=== PATIENT | male | born 1970 | race Caucasian/White ===

== ENCOUNTER → 2016-08-26 | Outpatient (CLI) | payer OTHER | LOC: RAD 10:09 | PROVIDERS: ATTEND Nurse Practitioner Family | DX: M54.5 Low back pain (principal) | CPT/HCPCS: 72148 ==

== ENCOUNTER 2017-01-03 14:35 | Emergency (ER) | payer OTHER ==
--- NOTE | 2017-01-03 15:11 | ER Document Report ---
ED Medical Screen (RME) - General Stated Complaint: FOOT PAIN Time Seen by Provider: 01/03/17 15:09 Mode of Arrival: Wheelchair Information source: Patient Notes: history of plantar fasciitis, fractured bones, torn ligaments. Reports felt light pop, excruciating pain to the right foot for 2 days. TRAVEL OUTSIDE OF THE [place] IN LAST 30 DAYS: No - Related Data Allergies/Adverse Reactions: No Known Allergies Allergy (Verified 11/11/13 00:01) Past Medical History - Past Medical History Cardiac Medical History: Reports: Hx Hypercholesterolemia, Hx Hypertension Endocrine Medical History: Reports: Hx Diabetes Mellitus Type 2 - pre diabetes Renal/ Medical History: Reports: Hx Kidney Stones Musculoskeltal Medical History: Reports Hx Arthritis, Reports Hx Musculoskeletal Deformity, Reports Hx Musculoskeletal Trauma Traumatic Medical History: Reports: Hx Fractures Past Surgical History: Reports: Hx Abdominal Surgery, Hx Orthopedic Surgery - knee replacement facial reconstruction, Hx Tonsillectomy - Immunizations Immunizations up to date: Yes Hx Diphtheria, Pertussis, Tetanus Vaccination: Yes
[2017-01-03 15:12] VITALS: BP 146/92
--- NOTE | 2017-01-03 15:48 | RADIOLOGY REPORT (SQ) ---
EXAM DESCRIPTION: FOOT RIGHT COMPLETE COMPLETED DATE/TIME: 01/03/2017 3:29 pm REASON FOR STUDY: pain, swelling COMPARISON: 01/26/2009. NUMBER OF VIEWS: Three views. TECHNIQUE: AP, lateral and oblique radiographic images acquired of the right foot. LIMITATIONS: None. FINDINGS: MINERALIZATION: Normal. BONES: No acute fracture or dislocation. Plantar calcaneal spur. No worrisome bone lesions. JOINTS: No effusions. SOFT TISSUES: Generalized soft tissue swelling. Calcifications in the posterior plantar soft tissues . No foreign body. OTHER: No other significant finding. IMPRESSION: CHRONIC CHANGES. HEEL SPUR. SOFT TISSUE SWELLING. NO ACUTE BONY FINDINGS. TECHNICAL DOCUMENTATION: JOB ID: [id number] [employer]- All Rights Reserved
--- NOTE | 2017-01-03 16:45 | ER Document Report ---
ED Extremity Problem, Lower - General Chief Complaint: Foot Pain Stated Complaint: FOOT PAIN Time Seen by Provider: 01/03/17 15:09 Mode of Arrival: Wheelchair Information source: Patient Notes: 6-year-old male presents to ED for right foot pain for the last couple days. States a couple days ago he was walking and he heard a pop. States he has not been able to go up on his toes for several years due to a previous injury. States the next morning after he heard a pop in his foot he was not able to walk on his foot. States he supposed to start PT tomorrow that he has been seeing the ID for since April. TRAVEL OUTSIDE OF THE [place] IN LAST 30 DAYS: No - HPI Patient complains to provider of: Pain, Swelling Location: Foot - Right Occurred: Other - Today Where: Home Onset/Duration: Persistent, Worse Quality of pain: Burning, Sharp Severity: Moderate Pain Level: 4 Context: Other Recent injury: Yes Associated symptoms: [place] a pop, Painful ambulation Exacerbated by: Movement, Walking Relieved by: Nothing - Related Data Allergies/Adverse Reactions: No Known Allergies Allergy (Verified 11/11/13 00:01) Past Medical History - General Information source: Patient - Social History Smoking Status: Former Smoker Cigarette use (# per day): No Chew tobacco use (# tins/day): No Smoking Education Provided: No Frequency of alcohol use: None Drug Abuse: None Occupation: business unit controller Lives with: Family Family History: Arthritis, COPD, DM, Hyperlipidemia, Hypertension, Malignancy, Thyroid Disfunction Patient has suicidal ideation: No Patient has homicidal ideation: No - Past Medical History Cardiac Medical History: Reports: Hx Hypercholesterolemia, Hx Hypertension Pulmonary Medical History: Reports: None EENT Medical History: Reports: None Neurological Medical History: Reports: Hx Migraine Endocrine Medical History: Reports: Hx Diabetes Mellitus Type 2 - pre diabetes Renal/ Medical History: Reports: Hx Benign Prostatic Hyperplasia, Hx Hydrocele , Hx Kidney Stones, Hx Varicocele Malignancy Medical History: Reports None GI Medical History: Reports: Other - Multiple hernias with multiple surgeries to repair Musculoskeltal Medical History: Reports Hx Arthritis, Reports Hx Musculoskeletal Deformity, Reports Hx Musculoskeletal Trauma - To many fractures to list Skin Medical History: Reports None Psychiatric Medical History: Reports: None Traumatic Medical History: Reports: Hx Fractures Infectious Medical History: Reports: None Past Surgical History: Reports: Hx Abdominal Surgery - Multiple hernia surgeries , Hx Kidney (Renal Surgery) - Kidney stone surgery, Hx Myringotomy, Hx Oral Surgery, Hx Orthopedic Surgery - knee replacement facial reconstruction multiple 21 knee surgeries, Hx Tonsillectomy - Immunizations Immunizations up to date: Yes Hx Diphtheria, Pertussis, Tetanus Vaccination: Yes Review of Systems - Review of Systems Constitutional: No symptoms reported EENT: No symptoms reported Cardiovascular: No symptoms reported Respiratory: No symptoms reported Gastrointestinal: No symptoms reported Genitourinary: No symptoms reported Male Genitourinary: No symptoms reported Musculoskeletal: Other - Right foot pain and swelling Skin: No symptoms reported Hematologic/Lymphatic: No symptoms reported Neurological/Psychological: No symptoms reported -: Yes All other systems reviewed and negative Physical Exam - Vital signs Vitals: Temp Pulse Resp BP Pulse Ox 98.9 F 92 20 146/92 H 96 01/03/17 15:10 01/03/17 15:10 01/03/17 15:10 01/03/17 15:10 01/03/17 15:10 Interpretation: Normal - General General appearance: Appears well, Alert - HEENT Head: Normocephalic, Atraumatic Eyes: Normal Pupils: PERRL - Respiratory Respiratory status: No respiratory distress Chest status: Nontender Breath sounds: Normal Chest palpation: Normal - Cardiovascular Rhythm: Regular Heart sounds: Normal auscultation Murmur: No - Abdominal Inspection: Normal Distension: No distension Bowel sounds: Normal Tenderness: Nontender Organomegaly: No organomegaly - Back Back: Normal, Nontender - Extremities General upper extremity: Normal inspection, Nontender, Normal color, Normal ROM , Normal temperature General lower extremity: Normal color, Normal temperature Foot: Tender, Ecchymosis, Edema, No evidence of FB, Unable to bear weight - States he has severe burning to palpation to the bottom of the foot.. No: Abrasion, Deformity, Instability, Laceration, Metatarsal compress. pain, Nail injury, Navicular tenderness, Puncture wound, Tender 5th metatarsal - Neurological Neuro grossly intact: Yes Cognition: Normal Orientation: AAOx4 [place] Coma Scale Eye Opening: Spontaneous [place] Coma Scale Verbal: Oriented [place] Coma Scale Motor: Obeys Commands [place] Coma Scale Total: 15 Speech: Normal Motor strength normal: LUE, RUE, LLE, RLE Sensory: Normal - Psychological Associated symptoms: Normal affect, Normal mood - Skin Skin Temperature: Warm Skin Moisture: Dry Skin Color: Normal Course - Re-evaluation Re-evalutation: 01/03/17 20:22 X-rays discussed with patient. Report given to patient to [facility] with [facility]. Patient refused narcotics states he just wants a prescription for some anti-inflammatories. Prescription for naproxen given to patient. Patient given instructions for plantar fasciitis and heel spurs. Patient given instructions concerning use of ice. - Vital Signs Vital signs: Temp Pulse Resp BP Pulse Ox 98.9 F 92 20 146/92 H 96 01/03/17 15:10 01/03/17 15:10 01/03/17 15:10 01/03/17 15:10 01/03/17 15:10 - Diagnostic Test Radiology reviewed: Image reviewed, Reports reviewed Discharge - Discharge Clinical Impression: Right foot pain Right foot injury Qualifiers: Encounter type: initial encounter Qualified Code(s): S99.921A - Unspecified injury of right foot, initial encounter Condition: Stable Disposition: HOME, SELF-CARE Instructions: Exercises for the Foot Muscles ([facility]) Additional Instructions: You were seen today for right foot pain. You state you felt a pop in your foot. X-ray shows healed scars but not in acute. Plantar Fasciitis or Heel Spur Plantar fasciitis is an inflammation of a ligament on the underside of the foot. It can be caused by injury, overuse such as running, or poorly fitting shoes. There may be a bone spur on the heel if inflammation has persisted a long time. Plantar fasciitis is treated with stretching exercises and antiinflammatory medicine. More severe cases may require injection of cortisone. It may take several weeks to get better. If nothing gives relief, an operation to remove the heel spur may help. Call or return if there is redness, increasing pain, swelling, fever, or any other new symptoms. Anti-Inflammatory Medication You have received a prescription for an antiinflammatory agent. This is an excellent, safe drug for pain control. In addition, it has potent antiinflammatory effects which are beneficial, especially in the treatment of injuries, arthritis, or tendonitis. It's best to take this medicine with food. Persons with ulcer disease or allergy to aspirin should notify their physician of this before taking this drug. Take the medication exactly as prescribed. Don't take additional doses unless instructed to do so by your doctor. If you develop wheezing, shortness of breath, hives, faintness, stomach pain, vomiting, or dark black stools, return for re-evaluation at once. Fill a 16 oz water bottle @ [address] full with water then freeze it. Then will your foot back and forth across the water bottle for a couple of minutes then we freed up the bottle. You can do this 3 or 4 times a day. Do not hold it still on the bottle. FOLLOW-UP CARE: If you have been referred to a physician for follow-up care, call the physician s office for an appointment as you were instructed or within the next two days. If you experience worsening or a significant change in your symptoms, notify the physician immediately or return to the Emergency Department at any time for re-evaluation. Follow-up with your [facility] doctor and get a referral to a data security analyst or orthopedic doctor. Please complete the patient's satisfaction survey if you get one and return. If you do not receive a survey you can go to [email or web address] website [email or web address] and place your comments about your very good care. Thank you very much. It was a pleasure be in your medical provider today. Prescriptions: Naproxen 500 mg PO BIDP PRN #20 tablet PRN Reason: Forms: Elevated Blood Pressure
== END 2017-01-03 16:59 | disposition home or self-care (01) ==
LOC: ER 14:35
DX: S90.31XA Contusion of right foot, initial encounter (principal); X58.XXXA Exposure to other specified factors, initial encounter; M79.671 Pain in right foot; I10 Essential (primary) hypertension; Z87.891 Personal history of nicotine dependence
CPT/HCPCS: 99283

== ENCOUNTER 2017-07-16 10:13 | Emergency (ER) | payer OTHER ==
[2017-07-16] MEDS ORDERED: ACETAMINOPHEN 325 MG TABLET PO ONE (10:26)
--- NOTE | 2017-07-16 10:26 | ER Document Report ---
ED Medical Screen (RME) - General Chief Complaint: Vomiting Stated Complaint: VOMITING Time Seen by Provider: 07/16/17 10:21 Notes: Patient says he has been sick since . Took a trip to [place] and while there was exposed to getting thoroughly wet and also cool temperatures while driving back. He is complaining of mostly difficulty breathing with a cough that is productive of clear phlegm. Says is been running a fever, as high as 104 last night. Generalized body aches. Vomited a couple of times since last night. Also having diarrhea. Having some discomfort in the front of his chest that he attributes to his coughing. No significant past medical history. Non-smoker. On no medications. Did not get a flu vaccination this year. Patient has 102.4 fever. Lungs are clear. No wheezes. TRAVEL OUTSIDE OF THE [place] IN LAST 30 DAYS: No - Related Data Allergies/Adverse Reactions: No Known Allergies Allergy (Verified 07/16/17 10:14) Past Medical History - Social History Chew tobacco use (# tins/day): No Frequency of alcohol use: Rare Drug Abuse: None - Past Medical History Cardiac Medical History: Reports: Hx Hypercholesterolemia, Hx Hypertension Neurological Medical History: Reports: Hx Migraine Endocrine Medical History: Reports: Hx Diabetes Mellitus Type 2 - pre diabetes Renal/ Medical History: Reports: Hx Benign Prostatic Hyperplasia, Hx Hydrocele , Hx Kidney Stones, Hx Varicocele. Denies: Hx Peritoneal Dialysis Musculoskeltal Medical History: Reports Hx Arthritis, Reports Hx Musculoskeletal Deformity, Reports Hx Musculoskeletal Trauma - To many fractures to list Traumatic Medical History: Reports: Hx Fractures Past Surgical History: Reports: Hx Abdominal Surgery - Multiple hernia surgeries , Hx Kidney (Renal Surgery) - Kidney stone surgery, Hx Myringotomy, Hx Oral Surgery, Hx Orthopedic Surgery - knee replacement facial reconstruction multiple 21 knee surgeries, Hx Tonsillectomy - Immunizations Immunizations up to date: Yes Hx Diphtheria, Pertussis, Tetanus Vaccination: Yes Physical Exam - Vital signs Vitals: Temp Pulse Resp BP Pulse Ox 102.4 F H 106 H 20 110/62 100 07/16/17 10:19 07/16/17 10:19 07/16/17 10:19 07/16/17 10:19 07/16/17 10:19 Course - Vital Signs Vital signs: Temp Pulse Resp BP Pulse Ox 102.4 F H 106 H 20 110/62 100 07/16/17 10:19 07/16/17 10:19 07/16/17 10:19 07/16/17 10:19 07/16/17 10:19
[2017-07-16 11:03] LABS: ABSOLUTE LYMPHOCYTES (AUTO) 0.7 10^3/uL (0.5-4.7); ABSOLUTE MONOCYTES (AUTO) 0.6 10^3/uL (0.1-1.4); ABSOLUTE NEUT (AUTO) 3.3 10^3/uL (1.7-8.2); BASOPHILS % (AUTO) 0.5 % (0-2); HEMATOCRIT 44.4 % (37.9-51.0); HEMOGLOBIN 15.5 g/dL (13.5-17.0); HGB HCT DIFFERENCE 2.1; LYMPHOCYTES % (AUTO) 15.8 % (13-45); MEAN CORPUSCULAR HEMOGLOBIN 29.4 pg (27.0-33.4); MEAN CORPUSCULAR HGB CONC 34.9 g/dL (32.0-36.0); MEAN CORPUSCULAR VOLUME 84 fl (80-97); MONOCYTES % (AUTO) 12.5 % (3-13); RED BLOOD COUNT 5.26 10^6/uL (4.35-5.55); RED CELL DISTRIBUTION WIDTH 14.1 % (11.5-14.0); SEGMENTED NEUTROPHILS % (AUTO) 71.2 % (42-78); WHITE BLOOD COUNT 4.6 10^3/uL (4.0-10.5)
[2017-07-16] MEDS ORDERED: ONDANSETRON HCL INJ/PF 4 MG/2 ML SDV IV ONE (11:05)
[2017-07-16 11:11] LABS: APPEARANCE,URINE SLIGHTLY-CLOUDY; BILIRUBIN,URINE NEGATIVE (NEGATIVE); GLUCOSE, URINE NEGATIVE (NEGATIVE); KETONES,URINE NEGATIVE (NEGATIVE); LEUKOCYTE ESTERASE,URINE NEGATIVE (NEGATIVE); NITRITE,URINE NEGATIVE (NEGATIVE); PROTEIN,URINE 100 mg/dL (NEGATIVE); URINE SPECIFIC GRAVITY 1.026
--- NOTE | 2017-07-16 11:12 | RADIOLOGY REPORT (SQ) ---
EXAM DESCRIPTION: CHEST PA/LAT COMPLETED DATE/TIME: 07/16/2017 11:05 am REASON FOR STUDY: Body aches, fever, cough COMPARISON: 01/16/2009 EXAM PARAMETERS: NUMBER OF VIEWS: two views TECHNIQUE: Digital Frontal and Lateral radiographic views of the chest acquired. RADIATION DOSE: NA LIMITATIONS: none FINDINGS: LUNGS AND PLEURA: Patchy bibasilar airspace opacities. No consolidation, pleural effusion , or pneumothorax. MEDIASTINUM AND HILAR STRUCTURES: No masses or contour abnormalities. HEART AND VASCULAR STRUCTURES: Heart stable in size. No evidence for failure. BONES: No acute findings. HARDWARE: None in the chest. OTHER: No other significant finding. IMPRESSION: PATCHY BIBASILAR AIRSPACE OPACITIES MAY REPRESENT SUBSEGMENTAL ATELECTASIS, ASPIRATION, OR DEVELOPING PNEUMONIA. TECHNICAL DOCUMENTATION: JOB ID: [id number] [employer]- All Rights Reserved
--- NOTE | 2017-07-16 11:16 | ER Document Report ---
ED General - General Chief Complaint: Vomiting Stated Complaint: VOMITING Time Seen by Provider: 07/16/17 10:21 Mode of Arrival: Ambulatory Information source: Patient Notes: . Patient notes it is productive cough admits to fevers and chills. Patient notes he was driving from [place] and was wet on the drive and he was called in the car had no heat. He believes he got pneumonia. Patient denies smoking TRAVEL OUTSIDE OF THE [place] IN LAST 30 DAYS: No - HPI Onset: Other - To 3 day duration Onset/Duration: Persistent Quality of pain: Achy Severity: Mild Pain Level: 1 Associated symptoms: Fever Exacerbated by: Denies Relieved by: Denies Similar symptoms previously: No Recently seen / treated by doctor: No - Related Data Allergies/Adverse Reactions: No Known Allergies Allergy (Verified 07/16/17 10:14) Past Medical History - Social History Smoking Status: Former Smoker Cigarette use (# per day): No Chew tobacco use (# tins/day): No Smoking Education Provided: No Frequency of alcohol use: Rare Drug Abuse: None Family History: Arthritis, COPD, DM, Hyperlipidemia, Hypertension, Malignancy, Thyroid Disfunction Patient has suicidal ideation: No Patient has homicidal ideation: No - Past Medical History Cardiac Medical History: Reports: Hx Hypercholesterolemia, Hx Hypertension Neurological Medical History: Reports: Hx Migraine Endocrine Medical History: Reports: Hx Diabetes Mellitus Type 2 - pre diabetes Renal/ Medical History: Reports: Hx Benign Prostatic Hyperplasia, Hx Hydrocele , Hx Kidney Stones, Hx Varicocele. Denies: Hx Peritoneal Dialysis Musculoskeltal Medical History: Reports Hx Arthritis, Reports Hx Musculoskeletal Deformity, Reports Hx Musculoskeletal Trauma - To many fractures to list Traumatic Medical History: Reports: Hx Fractures Past Surgical History: Reports: Hx Abdominal Surgery - Multiple hernia surgeries , Hx Kidney (Renal Surgery) - Kidney stone surgery, Hx Myringotomy, Hx Oral Surgery, Hx Orthopedic Surgery - knee replacement facial reconstruction multiple 21 knee surgeries, Hx Tonsillectomy - Immunizations Immunizations up to date: Yes Hx Diphtheria, Pertussis, Tetanus Vaccination: Yes Review of Systems - Review of Systems Notes: REVIEW OF SYSTEMS: CONSTITUTIONAL : admits fever EENT: Denies eye, ear, throat, or mouth pain or symptoms. Denies nasal or sinus congestion or discharge. Denies throat, tongue, or mouth swelling or difficulty swallowing. CARDIOVASCULAR: Denies chest pain. Denies palpitations or racing or irregular heart beat. Denies ankle edema. RESPIRATORY: wheezing, productive cough GASTROINTESTINAL: Denies abdominal pain or distention. Denies nausea, vomiting , or diarrhea. Denies blood in vomitus, stools, or per rectum. Denies black, tarry stools. Denies constipation. GENITOURINARY: Denies difficulty urinating, painful urination, burning, frequency, blood in urine, or discharge. MUSCULOSKELETAL: Denies back or neck pain or stiffness. Denies joint pain or swelling. SKIN: Denies rash, lesions or sores. HEMATOLOGIC : Denies easy bruising or bleeding. LYMPHATIC: Denies swollen, enlarged glands. NEUROLOGICAL: Denies confusion or altered mental status. Denies passing out or loss of consciousness. Denies dizziness or lightheadedness. Denies headache. Denies weakness or paralysis or loss of use of either side. Denies problems with gait or speech. Denies sensory loss, numbness, or tingling. Denies seizures. PSYCHIATRIC: Denies anxiety or stress. Denies depression, suicidal ideation, or homicidal ideation. ALL OTHER SYSTEMS REVIEWED AND NEGATIVE. Dictation was performed using [employer] voice recognition software PHYSICAL EXAMINATION: GENERAL: Well-appearing, well-nourished and in no acute distress. febrile HEAD: Atraumatic, normocephalic. EYES: Pupils equal round and reactive to light, extraocular movements intact, sclera anicteric, conjunctiva are normal. ENT: Nares patent, oropharynx clear without exudates. Moist mucous membranes. NECK: Normal range of motion, supple without lymphadenopathy LUNGS: rhonchi at the left base, faint wheezing all throughout HEART: tachycardic ABDOMEN: Soft, nontender, nondistended abdomen. No guarding, no rebound. No masses appreciated. Musculoskeletal: Normal range of motion, no pitting or edema. No cyanosis. NEUROLOGICAL: Cranial nerves grossly intact. Normal speech, normal gait. Normal sensory, motor exams PSYCH: Normal mood, normal affect. SKIN: Warm, Dry, normal turgor, no rashes or lesions noted. Physical Exam - Vital signs Vitals: Temp Pulse Resp BP Pulse Ox 102.4 F H 106 H 20 110/62 100 07/16/17 10:19 07/16/17 10:19 07/16/17 10:19 07/16/17 10:19 07/16/17 10:19 Course - Re-evaluation Re-evalutation: 07/16/17 11:33 Patient's x-rays consistent with pneumonia which would be consistent with his presentation 07/16/17 16:44 Patient notes significant improvement after breathing treatments. Patient is noted to be mildly hypoxic when he is laying flat but the patient does have a history of sleep apnea therefore I did ambulate him and he was satting 96% on room air and was not short of breath. Therefore I will discharge the patient with understand that he must return immediately if symptoms worsen or there is any distress. Patient and agree with this plan After performing a Medical Screening Examination, I estimate there is LOW risk for ACUTE CORONARY SYNDROME, PULMONARY EMBOLI, RESPIRATORY FAILURE, SEPSIS OR MENINGITIS, thus I consider the discharge disposition reasonable. I have reevaluated this patient multiple times and no significant life threatening changes are noted. The patient and I have discussed the diagnosis and risks, and we agree with discharging home with close follow-up. We also discussed returning to the Emergency Department immediately if new or worsening symptoms occur. We have discussed the symptoms which are most concerning (e.g., changing or worsening pain, trouble swallowing or breathing, neck stiffness, fever) that necessitate immediate return. - Vital Signs Vital signs: Temp Pulse Resp BP Pulse Ox 101.6 F H 96 20 111/95 H 93 07/16/17 13:02 07/16/17 13:02 07/16/17 13:02 07/16/17 13:02 07/16/17 13:02 - Laboratory Result Diagrams: 07/16/17 10:40 07/16/17 10:40 Laboratory results interpreted by me: 07/16/17 07/16/17 07/16/17 10:31 10:40 10:40 RDW 14.1 H Plt Count 141 L Sodium 133.5 L Chloride 95 L Glucose 121 H AST 60 H Urine Protein 100 H Urine Urobilinogen 2.0 H Urine Ascorbic Acid 40 H - Diagnostic Test Radiology reviewed: Image reviewed, Reports reviewed - Pneumonia Discharge - Discharge Clinical Impression: Pneumonia Qualifiers: Pneumonia type: due to unspecified organism Laterality: right Lung location: lower lobe of lung Qualified Code(s): J18.1 - Lobar pneumonia, unspecified organism Fever Qualifiers: Fever type: unspecified Qualified Code(s): R50.9 - Fever, unspecified Vomiting Qualifiers: Vomiting type: unspecified Vomiting Intractability: non-intractable Nausea presence: with nausea Qualified Code(s): R11.2 - Nausea with vomiting, unspecified Condition: Stable Disposition: HOME, SELF-CARE Instructions: Vomiting ([facility]) Prescriptions: Levofloxacin [Levaquin 750 mg Tablet] 750 mg PO DAILY #5 tablet Ondansetron [Zofran Odt 4 mg Tablet] 1 - 2 tab PO Q4H PRN #15 tab.rapdis PRN Reason: For Nausea/Vomiting Referrals: DIGNA MADDEN PA-C [Primary Care Provider] - Follow up tomorrow
[2017-07-16] MEDS ORDERED: LEVOFLOXACIN 750 MG TABLET PO ONE (11:17)
[2017-07-16 11:21] LABS: ALANINE AMINOTRANSFERASE 38 U/L (21-72); ALBUMIN 4.1 g/dL (3.5-5.0); ALKALINE PHOSPHATASE 79 U/L (38-126); ANION GAP 13 (5-19); ASPARTATE AMINO TRANSFERASE 60 U/L (17-59); BILIRUBIN,DIRECT 0.3 mg/dL (0.0-0.4); BLOOD UREA NITROGEN 16 mg/dL (7-20); CALCIUM 8.6 mg/dL (8.4-10.2); CARBON DIOXIDE 26 mmol/L (22-30); CHLORIDE 95 mmol/L (98-107); CREATININE RESULT 1.07 mg/dL (0.52-1.25); GLUCOSE 121 mg/dL (75-110); POTASSIUM 4.5 mmol/L (3.6-5.0); SODIUM 133.5 mmol/L (137-145); TOTAL PROTEIN 7.2 g/dL (6.3-8.2)
[2017-07-16] MEDS ORDERED: IPRATROPIUM/ALBUTEROL 0.5-2.5 MG/3 ML AMPUL NEB ONE ×3 (11:22)
[2017-07-16] MEDS: NORMAL SALINE 1000 ML 1,000 ML IV PRN ×2 (11:23→11:35)
[2017-07-16] MEDS ORDERED: ALBUTEROL SULFATE HFA (90 MCG/PUFF) 8 GM MDI (1 MDI/ER DISP) IH PRN (13:11)
[2017-07-16 13:23] VITALS: BP 111/95
== END 2017-07-16 13:23 | disposition home or self-care (01) ==
LOC: ER 10:13
DX: J18.1 Lobar pneumonia, unspecified organism (principal); R11.2 Nausea with vomiting, unspecified; R09.02 Hypoxemia; R05 Cough; R50.9 Fever, unspecified; R06.2 Wheezing; I10 Essential (primary) hypertension; Z87.891 Personal history of nicotine dependence
CPT/HCPCS: 94640; 99283; 96361; 96374; 36415; 85025; 80053; 81001; 87804; 71020; J2405; J7030; J3490; J7620

== ENCOUNTER 2017-07-18 11:05 | Inpatient (IN) | payer OTHER ==
[2017-07-18] MEDS ORDERED: NORMAL SALINE 1000 ML 1,000 ML IV ONE ×2 (12:01→13:06)
[2017-07-18] MEDS ORDERED: IPRATROPIUM/ALBUTEROL 0.5-2.5 MG/3 ML AMPUL NEB ONE (12:01)
[2017-07-18] MEDS ORDERED: METHYLPREDNISOLONE INJ 125 MG/2 ML SDV IV ONE (12:01)
--- NOTE | 2017-07-18 12:05 | ER Document Report ---
ED Respiratory Problem - General Mode of Arrival: Ambulatory Information source: Patient TRAVEL OUTSIDE OF THE [place] IN LAST 30 DAYS: No <DUSTIN DEE - Last Filed: 07/18/17 14:48> <TAYLOR SEVERINO - Last Filed: 07/18/17 15:01> - General Chief Complaint: Cough Stated Complaint: COUGH Time Seen by Provider: 07/18/17 11:57 Notes: Patient is a 46-year-old male who presents to the emergency department today in moderate respiratory distress. Patient was seen here on and diagnosed with right lower lobe pneumonia and started on Levaquin. Patient states he has had increasing shortness of breath and a worsening cough. Patient states his sputum has been consistently white and frothy the last few days. Patient denies any underlying pulmonary medical history. (DUSTIN DEE) Review of the record shows an 2010 he was admitted for prostatitis and at that time was taking Norvasc and metformin and fish oil. At this time he states he has never had high blood pressure, cholesterol issues, or diabetes. He further states he is on no medications at this time. Several entries about kidney stones diabetes blood pressure cholesterol etc. are carryover is in his electronic chart today. Some of these were corrected by the scribe, some did not get corrected before the scribed left and I am unable to revise the chart. (TAYLOR SEVERINO) - Related Data Allergies/Adverse Reactions: No Known Allergies Allergy (Verified 07/18/17 11:07) Past Medical History - General Information source: Patient - Social History Smoking Status: Former Smoker Cigarette use (# per day): No Chew tobacco use (# tins/day): No Frequency of alcohol use: None Drug Abuse: None Lives with: Family Family History: Arthritis, COPD, DM, Hyperlipidemia, Hypertension, Malignancy, Thyroid Disfunction Patient has suicidal ideation: No Patient has homicidal ideation: No Neurological Medical History: Reports: Hx Migraine Endocrine Medical History: Reports: Hx Diabetes Mellitus Type 2 - pre diabetes Renal/ Medical History: Reports: Hx Benign Prostatic Hyperplasia, Hx Hydrocele , Hx Kidney Stones, Hx Varicocele Musculoskeltal Medical History: Reports Hx Arthritis, Reports Hx Musculoskeletal Deformity, Reports Hx Musculoskeletal Trauma - To many fractures to list Traumatic Medical History: Reports: Hx Fractures Past Surgical History: Reports: Hx Abdominal Surgery - Multiple hernia surgeries , Hx Kidney (Renal Surgery) - Kidney stone surgery, Hx Myringotomy, Hx Oral Surgery, Hx Orthopedic Surgery - knee replacement facial reconstruction multiple 21 knee surgeries, Hx Tonsillectomy - Immunizations Immunizations up to date: Yes Hx Diphtheria, Pertussis, Tetanus Vaccination: Yes <DUSTIN DEE - Last Filed: 07/18/17 14:48> Review of Systems - Review of Systems Constitutional: No symptoms reported EENT: No symptoms reported Cardiovascular: No symptoms reported Respiratory: See HPI, Cough, Short of breath Gastrointestinal: No symptoms reported Genitourinary: No symptoms reported Male Genitourinary: No symptoms reported Musculoskeletal: No symptoms reported Skin: No symptoms reported Hematologic/Lymphatic: No symptoms reported Neurological/Psychological: No symptoms reported -: Yes All other systems reviewed and negative <DUSTIN DEE - Last Filed: 07/18/17 14:48> Physical Exam - Vital signs Interpretation: Hypoxic, Tachypneic - General General appearance: Alert In distress: Moderate - HEENT Head: Normocephalic, Atraumatic Eyes: Normal Pupils: PERRL - Respiratory Respiratory status: Respiratory distress - 85%, Tachypnea Breath sounds: Rales - at the bases, Rhonchi Chest palpation: Normal - Cardiovascular Rhythm: Regular Heart sounds: Normal auscultation Murmur: No - Abdominal Inspection: Obese Distension: No distension Bowel sounds: Normal Tenderness: Nontender Organomegaly: No organomegaly - Back Back: Normal, Nontender - Extremities General upper extremity: Normal inspection, Nontender, Normal ROM General lower extremity: Normal inspection, Nontender, Normal ROM - Neurological Neuro grossly intact: Yes Cognition: Normal Orientation: AAOx4 [place] Coma Scale Eye Opening: Spontaneous [place] Coma Scale Verbal: Oriented [place] Coma Scale Motor: Obeys Commands [place] Coma Scale Total: 15 Speech: Normal - Psychological Associated symptoms: Normal affect, Normal mood - Skin Skin Temperature: Warm Skin Moisture: Dry Skin Color: Normal <DUSTIN DEE - Last Filed: 07/18/17 14:48> - Vital signs Vitals: Temp Pulse Resp BP Pulse Ox 100.8 F H 113 H 28 H 128/90 H 90 L 07/18/17 11:25 07/18/17 11:25 07/18/17 11:25 07/18/17 11:25 07/18/17 11:25 Course - Laboratory Result Diagrams: 07/18/17 12:00 07/18/17 12:00 <DUSTIN DEE - Last Filed: 07/18/17 14:48> - Laboratory Result Diagrams: 07/18/17 12:00 07/18/17 12:00 - Diagnostic Test Radiology reviewed: Image reviewed, Reports reviewed - EKG Interpretation by Me EKG shows normal: Sinus rhythm, [place], Intervals, QRS Complexes, ST-T Waves Rate: Normal - 96 Rhythm: NSR, APC's When compared to previous EKG there are: Previous EKG unavailable - Consults Dr. Hagan Time consulted: 14:30 Consulted provider: will come to ER <TAYLOR SEVERINO - Last Filed: 07/18/17 15:01> - Re-evaluation Re-evalutation: 07/18/17 13:04 The patient pulse ox is up to 94% on BiPAP at 60% FiO2. The d-dimer is 1.01. White blood cell count is 3300 with 76 segs no bands 17 limps. Chest x-ray shows left lower lobe pneumonia, the radiologist did not compare it to the one from 3 days ago when the reading. Due to the profound hypoxia, the chest x-ray that this does not look that bad, the normal white blood cell count 3 days ago and today, we will get a CTA chest to explore other etiologies besides this left lower lobe pneumonia. (TAYLOR SEVERINO) - Vital Signs Vital signs: Temp Pulse Resp BP Pulse Ox 100.8 F H 113 H 23 H 128/90 H 94 07/18/17 11:25 07/18/17 11:25 07/18/17 13:30 07/18/17 11:25 07/18/17 13:30 - Laboratory Laboratory results interpreted by me: 07/18/17 07/18/17 07/18/17 12:00 12:00 12:00 WBC 3.3 L Plt Count 117 L D-Dimer Carbonic Acid ABG pCO2 ABG pO2 ABG Total CO2 Sodium 129.4 L Chloride 93 L Glucose 117 H AST 247 H ALT 89 H Creatine Kinase 70122 H CK-MB (CK-2) 7.64 H 07/18/17 07/18/17 12:00 14:10 WBC Plt Count D-Dimer 1.04 H Carbonic Acid 0.97 L ABG pCO2 32.1 L ABG pO2 74.2 L ABG Total CO2 21.2 L Sodium Chloride Glucose AST ALT Creatine Kinase CK-MB (CK-2) Critical Care Note - Critical Care Note Total time excluding time spent on procedures (mins): 45 <TAYLOR SEVERINO - Last Filed: 07/18/17 15:01> Discharge <DUSTIN DEE - Last Filed: 07/18/17 14:48> - Discharge Admitting Provider: Hospitalist Unit Admitted: IMCU <TAYLOR SEVERINO - Last Filed: 07/18/17 15:01> - Discharge Clinical Impression: Hypoxemia Pneumonia Qualifiers: Pneumonia type: due to unspecified organism Laterality: bilateral Lung location : unspecified part of lung Qualified Code(s): J18.9 - Pneumonia, unspecified organism Fever Qualifiers: Fever type: unspecified Qualified Code(s): R50.9 - Fever, unspecified Rhabdomyolysis Qualifiers: Rhabdomyolysis type: non-traumatic Qualified Code(s): M62.82 - Rhabdomyolysis Condition: Fair Disposition: ADMITTED INPATIENT Referrals: DIGNA MADDEN PA-C [Primary Care Provider] - Follow up as needed Scribe Attestation: 07/18/17 14:37 I personally performed the services described in the documentation, reviewed and edited the documentation which was dictated to the scribe in my presence, and it accurately records my words and actions. (TAYLOR SEVERINO) Scribe Documentation - Scribe Written by Scribe:: Efren Manriquez, 07/18/2017 1322 acting as scribe for :: Shelton <DUSTIN DEE - Last Filed: 07/18/17 14:48>
[2017-07-18 12:19] LABS: ABSOLUTE LYMPHOCYTES (AUTO) 0.6 10^3/uL (0.5-4.7); ABSOLUTE MONOCYTES (AUTO) 0.2 10^3/uL (0.1-1.4); ABSOLUTE NEUT (AUTO) 2.5 10^3/uL (1.7-8.2); BASOPHILS % (AUTO) 0.2 % (0-2); HEMATOCRIT 43.5 % (37.9-51.0); HEMOGLOBIN 15.3 g/dL (13.5-17.0); LYMPHOCYTES % (AUTO) 16.9 % (13-45); MEAN CORPUSCULAR HEMOGLOBIN 29.4 pg (27.0-33.4); MEAN CORPUSCULAR HGB CONC 35.2 g/dL (32.0-36.0); MEAN CORPUSCULAR VOLUME 83 fl (80-97); MONOCYTES % (AUTO) 6.6 % (3-13); PLATELET COUNT 117 10^3/uL (150-450); RED BLOOD COUNT 5.22 10^6/uL (4.35-5.55); SEGMENTED NEUTROPHILS % (AUTO) 76.3 % (42-78); TOTAL CELLS COUNTED % (AUTO) 100 %; WHITE BLOOD COUNT 3.3 10^3/uL (4.0-10.5)
[2017-07-18] MEDS ORDERED: ALBUTEROL SULFATE 0.083% NEB 2.5 MG/3 ML AMPUL NEB ONE ×2 (12:20→12:56)
[2017-07-18] MEDS ORDERED: MAGNESIUM SULFATE/D5W 1 GM/100 ML RTUPB IV ONE (12:20)
--- NOTE | 2017-07-18 12:34 | RADIOLOGY REPORT (SQ) ---
EXAM DESCRIPTION: CHEST SINGLE VIEW COMPLETED DATE/TIME: 07/18/2017 12:23 pm REASON FOR STUDY: hypoxic COMPARISON: 07/16/2017 NUMBER OF VIEWS: One view. TECHNIQUE: Single frontal radiographic image of the chest acquired. LIMITATIONS: Motion. FINDINGS: LUNGS AND PLEURA: Segmental airspace disease in the left lower lobe with ipsilateral volum e loss. No large effusions. MEDIASTINUM AND HEART: Stable heart size and mediastinal structures. BONY STRUCTURES: No acute findings. HARDWARE: None. OTHER: No other significant finding. IMPRESSION: Left lower lobe pneumonia. TECHNICAL DOCUMENTATION: JOB ID: [id number]
[2017-07-18 12:35] LABS: ALANINE AMINOTRANSFERASE 89 U/L (21-72); ALBUMIN 3.6 g/dL (3.5-5.0); ALKALINE PHOSPHATASE 70 U/L (38-126); ANION GAP 10 (5-19); ASPARTATE AMINO TRANSFERASE 247 U/L (17-59); BILIRUBIN,DIRECT 0.3 mg/dL (0.0-0.4); BILIRUBIN,TOTAL 0.8 mg/dL (0.2-1.3); BLOOD UREA NITROGEN 14 mg/dL (7-20); CALCIUM 8.5 mg/dL (8.4-10.2); CARBON DIOXIDE 26 mmol/L (22-30); CHLORIDE 93 mmol/L (98-107); GLUCOSE 117 mg/dL (75-110); MAGNESIUM 1.7 mg/dL (1.6-2.3); POTASSIUM 4.9 mmol/L (3.6-5.0); SODIUM 129.4 mmol/L (137-145); TOTAL PROTEIN 6.4 g/dL (6.3-8.2)
[2017-07-18 12:48] LABS: CREATINE KINASE MB 7.64 ng/mL (<4.55)
[2017-07-18 12:52] LABS: TROPONIN I 0.066 ng/mL
[2017-07-18 13:00] LABS: CREATINE KINASE 12907 U/L (55-170)
--- NOTE | 2017-07-18 14:19 | RADIOLOGY REPORT (SQ) ---
EXAM DESCRIPTION: CTA CHEST COMPLETED DATE/TIME: 07/18/2017 2:08 pm REASON FOR STUDY: hypoxic,c elevated dimer COMPARISON: None. TECHNIQUE: CT scan of the chest performed using helical scanning technique with dynamic intravenous contrast injection. Images reviewed with lung, soft tissue and bone windows. Reconstructed coronal and sagittal MPR images reviewed. Additional 3 dimensional post-processing performed to develop Maximal Intensity Projection images (NC P). All images stored on PACS. All CT scanners at this facility use dose modulation, iterative reconstruction, and/or weight based d osing when appropriate to reduce radiation dose to as low as reasonably achievable (ALARA). [facility]: Dose Right [facility]: CareDose [facility]: Dose Right [facility]: Teradose 4D [facility]: Datalot CONTRAST TYPE AND DOSE: contrast/concentration: Isovue 370.00 mg/ml; Total Contrast Delivered: 86.0 ml; Total Saline Delivered: 80.0 ml Contrast bolus optimized for the pulmonary arteries. Not diagnostic for the aorta. RENAL FUNCTION: BUN 14 creatinine 0.92. RADIATION DOSE: CT Rad equipment meets quality standard of care and radiation dose reduction techniq ues were employed. CTDIvol: 39.7 - 41.8 mGy. DLP: 1656 mGy-cm. . LIMITATIONS: None. FINDINGS: LUNGS AND PLEURA: Patchy airspace disease scattered throughout both lungs. No pleural eff usion. No pneumothorax. AORTA AND GREAT VESSELS: No aneurysm. Contrast bolus not optimized for the aorta. HEART: No pericardial effusion. No significant coronary artery calcifications. PULMONARY ARTERIES: No emboli visualized in the main pulmonary arteries or the segmental branches. HILAR AND MEDIASTINAL STRUCTURES: No identified masses or abnormal nodes. HARDWARE: None in the chest. UPPER ABDOMEN: No significant findings. Limited exam. THYROID AND OTHER SOFT TISSUES: No masses. No adenopathy. BONES: No acute or significant finding. 3D MIPS: Confirm above findings. OTHER: No other significant finding. IMPRESSION: 1. NORMAL CTA OF THE CHEST. NO PULMONARY EMBOLI. 2. DIFFUSE PATCHY AIRSPACE DISEASE THROUGHOUT BOTH LUNGS. MOST LIKELY DUE TO MULTIFOCAL PNEUMONIA. COMMENT: Quality ID # [id number]: Final reports with documentation of one or more dose reduction techniques (e.g., Automated exposure control, adjustment of the mA and/or kV according to patient size, use of iterative reconstruction technique) TECHNICAL DOCUMENTATION: JOB ID: [id number] [employer]- All Rights Reserved
[2017-07-18 14:31] LABS: ARTERIAL BLOOD BASE EXCESS -3.2 mmol/L; ARTERIAL BLOOD H2CO3 0.97 mmol/L (1.05-1.35); ARTERIAL BLOOD HCO3 20.3 mmol/L (20-26); ARTERIAL BLOOD O2 SATURATION 95.3 % (94-98); ARTERIAL BLOOD PCO2 32.1 mmHg (35-45); ARTERIAL BLOOD PH 7.42 (7.35-7.45); ARTERIAL BLOOD PO2 74.2 mmHg (80-100); ARTERIAL BLOOD TOTAL CO2 21.2 mmol/L (23-27)
[2017-07-18 14:33] LABS: ARTERIAL BLOOD FIO2 60%
[2017-07-18] MEDS ORDERED: NORMAL SALINE 1000 ML 1,000 ML IV PRN (14:35)
[2017-07-18] MEDS ORDERED: LEVOFLOXACIN 750 MG/D5W RTU 750 MG/150 ML RTUPB IV ONE (14:37)
--- NOTE | 2017-07-18 15:56 | EKG REPORT ---
SEVERITY:- OTHERWISE NORMAL ECG - SINUS RHYTHM ATRIAL PREMATURE COMPLEX VPC : Confirmed by: Buck Durán 18-Jul-2017 15:55:21
[2017-07-18] MEDS ORDERED: GUAIFENESIN/D-METHORPHAN (200-20 MG) SYRUP 10 ML PO PRN (16:00)
--- NOTE | 2017-07-18 16:00 | PDOC H&P ---
History of Present Illness Admission Date/PCP: 07/18/17 15:07 DIGNA Bree [facility] in [place] History of Present Illness: EVERTON GUERRIER is a 46 year old male who presented to the emergency room on July 16 with a cough and was diagnosed with left lower lobe pneumonia. He was sent home with a prescription of Levaquin 750 mg p.o. daily and Zofran as needed. Past medical history is significant for Hypertension Hyperlipidemia Diabetes, diet controlled Obesity He is currently on no medications for his hypertension and hyperlipidemia since they are well controlled according to the patient. He continued to cough and feel short of breath. He also developed watery diarrhea 1-2 episodes a day. Since there were no improvement in his symptoms he presented back to the emergency room. He was found to be satting 85% on 6 L and was upgraded to BiPAP. IV Levaquin was ordered. He was also found to have rhabdomyolysis with elevated creatinine kinase and was started on IV fluids. The patient reports that he fell down approximately 10 steps when he slipped approximately 2 weeks ago. He he denies any recent heavy lifting or work out. Denies any muscle pain or soreness. He did hurt his back a little bit but has no excessive back pain at present and did not note any bruising. Patient reports chills and reduced appetite but no rhinorrhea no sore throat and no vomiting. Past Medical History Cardiac Medical History: Reports: Hyperlipidema, Hypertension Pulmonary Medical History: Reports: Pneumonia Neurological Medical History: Reports: Migraine Endocrine Medical History: Reports: Diabetes Mellitus Type 2 - pre diabetes Musculoskeltal Medical History: Reports: Arthritis Past Surgical History Past Surgical History: Reports: Orthopedic Surgery - knee replacement facial reconstruction multiple 21 knee surgeries, Tonsillectomy Social History Lives with: Family Smoking Status: Former Smoker Frequency of Alcohol Use: None Family History Family History: Arthritis, COPD, DM, Hyperlipidemia, Hypertension, Malignancy, Thyroid Disfunction Parental Family History Reviewed: Yes - Alcoholism Children Family History Reviewed: Yes Sibling(s) Family History Reviewed.: Yes Medication/Allergy Home Medications: Hydrocodone Bit/Acetaminophen [Vicodin 5-500 mg Tablet] 1 - 2 tab PO ASDIR PRN 06/10/11 Levofloxacin [Levaquin 750 mg Tablet] 750 mg PO DAILY #5 tablet 07/16/17 Allergies/Adverse Reactions: No Known Allergies Allergy (Verified 07/18/17 11:07) Review of Systems All systems: reviewed and no additional remarkable complaints except as stated Constitutional: PRESENT: as per HPI, chills Eyes: ABSENT: visual disturbances Ears: ABSENT: hearing changes Nose, Mouth, and Throat: ABSENT: headache(s), sore throat Cardiovascular: ABSENT: chest pain, edema Respiratory: PRESENT: cough, dyspnea. ABSENT: hemoptysis Gastrointestinal: PRESENT: diarrhea. ABSENT: abdominal pain, heartburn, hematochezia, vomiting Genitourinary: ABSENT: dysuria, hematuria Musculoskeletal: ABSENT: joint swelling, muscle weakness Integumentary: ABSENT: pruritus, rash Neurological: ABSENT: abnormal gait, confusion, focal weakness Psychiatric: ABSENT: anxiety, depression - Lasix Endocrine: ABSENT: flushing Physical Exam Vital Signs: Temp Pulse Resp BP Pulse Ox 100.8 F H 113 H 26 H 112/74 94 07/18/17 11:25 07/18/17 11:25 07/18/17 15:03 07/18/17 15:03 07/18/17 15:03 Additional comments: Obese young male sitting up in bed not in acute distress HEENT: Pupils equal reactive to light, moist pink oral pharyngeal mucosa with no lesions no pallor no icterus no conjunctival discharge Neck is supple: Trachea is midline Lungs: Scattered rhonchi heard, no crackles, normal respiratory effort Abdomen: Soft, no focal tenderness normal bowel sounds Musculoskeletal: No joint swelling or deformity, no muscle tenderness Skin: Warm and dry Neurologic: Awake and alert speech is clear and fluent no facial droop Oriented 3, no tremor Results Impressions: Chest X-Ray 07/18/17 12:03 IMPRESSION: Left lower lobe pneumonia. Chest/Abdomen CTA 07/18/17 12:55 IMPRESSION: 1. NORMAL CTA OF THE CHEST. NO PULMONARY EMBOLI. 2. DIFFUSE PATCHY AIRSPACE DISEASE THROUGHOUT BOTH LUNGS. MOST LIKELY DUE TO MULTIFOCAL PNEUMONIA. Status: Imported from PACS Assessment & Plan - Diagnosis (1) Bilateral pneumonia Qualifiers: Pneumonia type: due to unspecified organism Lung location: lower lobe of lung Qualified Code(s): J18.9 - Pneumonia, unspecified organism Is this a current diagnosis for this admission?: Yes Plan: Today is day 4 of levofloxacin and this will be continued. Check urine for Legionella antigen. Rocephin has also been added. Influenza screen ordered. Duo nebs as needed and respiratory assessment and treatment. Cough suppressant as needed. (2) Obesity (BMI 30-39.9) Is this a current diagnosis for this admission?: Yes (3) Hypoxemia Is this a current diagnosis for this admission?: Yes (4) Rhabdomyolysis Qualifiers: Rhabdomyolysis type: non-traumatic Qualified Code(s): M62.82 - Rhabdomyolysis Is this a current diagnosis for this admission?: Yes Plan: Check urine myoglobin. Monitor creatinine kinase levels. IV normal saline. (5) Diarrhea Qualifiers: Diarrhea type: unspecified type Qualified Code(s): R19.7 - Diarrhea, unspecified Is this a current diagnosis for this admission?: Yes Plan: Check stool C. difficile. Probiotics and Questran ordered. - Time Time Spent: 50 to 70 Minutes - Plan Summary Plan Summary: The patient is a full code. Healthcare power of civil rights attorney is his Crystal , phone #[phone].
[2017-07-18] MEDS: LACTOBACILLUS ACIDOPHILUS 250 MG TAB PO SCH (17:57)
[2017-07-18] MEDS: CHOLESTYRAMINE/ASPARTAME 4 GM PACKET PO SCH ×2 (17:57→22:40)
[2017-07-18] MEDS ORDERED: GUAIFENESIN 600 MG TABLET.SA PO SCH (22:00)
[2017-07-19 05:49] LABS: HEMATOCRIT 42.4 % (37.9-51.0); HEMOGLOBIN 14.9 g/dL (13.5-17.0); MEAN CORPUSCULAR HEMOGLOBIN 29.1 pg (27.0-33.4); MEAN CORPUSCULAR HGB CONC 35.2 g/dL (32.0-36.0); MEAN CORPUSCULAR VOLUME 83 fl (80-97); PLATELET COUNT 109 10^3/uL (150-450); RED BLOOD COUNT 5.14 10^6/uL (4.35-5.55)
[2017-07-19 06:23] LABS: ALANINE AMINOTRANSFERASE 105 U/L (21-72); ALBUMIN 3.4 g/dL (3.5-5.0); ALKALINE PHOSPHATASE 68 U/L (38-126); ANION GAP 11 (5-19); ASPARTATE AMINO TRANSFERASE 310 U/L (17-59); BILIRUBIN,DIRECT 0.4 mg/dL (0.0-0.4); BILIRUBIN,TOTAL 0.6 mg/dL (0.2-1.3); BLOOD UREA NITROGEN 15 mg/dL (7-20); CALCIUM 8.4 mg/dL (8.4-10.2); CARBON DIOXIDE 23 mmol/L (22-30); CHLORIDE 98 mmol/L (98-107); CHOLESTEROL 139.02 mg/dL (0-200); GLUCOSE 172 mg/dL (75-110); POTASSIUM 4.8 mmol/L (3.6-5.0); TOTAL PROTEIN 6.3 g/dL (6.3-8.2); TRIGLYCERIDES 134 mg/dL (<150)
[2017-07-19 06:34] LABS: DIRECT LDL 66 mg/dL (<100)
[2017-07-19 07:37] LABS: CREATINE KINASE 19342 U/L (55-170)
[2017-07-19] MEDS ORDERED: NORMAL SALINE 1000 ML 1,000 ML IV PRN (08:11)
[2017-07-19] MEDS: CHOLESTYRAMINE/ASPARTAME 4 GM PACKET PO SCH ×3 (09:18→16:16)
[2017-07-19] MEDS ORDERED: IPRATROPIUM/ALBUTEROL 0.5-2.5 MG/3 ML AMPUL NEB PRN (09:32)
[2017-07-19] MEDS ORDERED: ACETAMINOPHEN 325 MG TABLET PO PRN (09:35)
[2017-07-19] MEDS ORDERED: GLUCAGON,HUMAN RECOMB 1 MG INJ IM PRN (09:35)
[2017-07-19] MEDS ORDERED: DEXTROSE 50%-WATER 25 GM/50 ML DISP.SYRIN IV PRN ×2 (09:35)
[2017-07-19] MEDS ORDERED: DEXTROSE 40% GEL 15 GM TUBE PO PRN ×2 (09:35)
[2017-07-19] MEDS ORDERED: INSULIN REG, HUMAN 100 UNIT/ML 3 ML VIAL (PYX) SUBCUT PRN (09:35)
[2017-07-19] MEDS: LACTOBACILLUS ACIDOPHILUS 250 MG TAB PO SCH ×2 (09:40→17:36)
--- NOTE | 2017-07-19 09:41 | PDOC PROGRESS REPORT ---
Subjective Progress Note for:: 07/19/17 Subjective:: 46 year old male who presented to the emergency room on July 16 with a cough and was diagnosed with left lower lobe pneumonia. He was sent home with a prescription of Levaquin 750 mg p.o. daily and Zofran as needed. Past medical history is significant for Hypertension Hyperlipidemia Diabetes, diet controlled Obesity He is currently on no medications for his hypertension and hyperlipidemia since they are well controlled according to the patient. He continued to cough and feel short of breath. He also developed watery diarrhea 1-2 episodes a day. Since there were no improvement in his symptoms he presented back to the emergency room. He was found to be satting 85% on 6 L and was upgraded to BiPAP. IV Levaquin was ordered. He was also found to have rhabdomyolysis with elevated creatinine kinase and was started on IV fluids. The patient reported that he fell down approximately 10 steps when he slipped approximately 2 weeks ago. He he denies any recent heavy lifting or work out. Denies any muscle pain or soreness. He did hurt his back a little bit but has no excessive back pain at present and did not note any bruising. Patient reports chills and reduced appetite but no rhinorrhea no sore throat and no vomiting. The patient reports generalized discomfort and some achiness of the shoulders. He continues to cough but is not bringing up any phlegm. Stools were negative for C. difficile. Reason For Visit: RHABDOMYOLYSIS AND PNEUMONIA Physical Exam Vital Signs: Temp Pulse Resp BP Pulse Ox 99.4 F 100 24 H 115/71 91 L 07/19/17 08:14 07/19/17 08:14 07/19/17 08:14 07/19/17 08:14 07/19/17 08:14 Intake & Output 07/18/17 07/19/17 07/20/17 06:59 06:59 06:59 Intake Total 310 Output Total 900 Balance -590 Weight 164.3 kg 164.3 kg Additional comments: Obese, male sitting up in bed HEENT: Pupils equal reactive to light, moist pink oral pharyngeal mucosa with no lesions no pallor no icterus no conjunctival discharge Neck: Obese, supple,Trachea is midline Lungs: Coarse breath sounds bilaterally with bilateral rhonchi, no crackles Abdomen: Soft, obese, no focal tenderness ,normal bowel sounds Musculoskeletal: No joint swelling or deformity, no muscle tenderness Skin: Warm and dry Neurologic: Awake and alert, oriented 3 speech is clear and fluent no facial droop Results Laboratory Results: 07/19/17 05:03 07/19/17 05:03 07/19/17 07/19/17 05:03 05:03 WBC 4.0 RBC 5.14 Hgb 14.9 Hct 42.4 MCV 83 MCH 29.1 MCHC 35.2 RDW 14.0 Plt Count 109 L Sodium 132.0 L Potassium 4.8 Chloride 98 Carbon Dioxide 23 Anion Gap 11 BUN 15 Creatinine 0.73 Est GFR ( Amer) > 60 Est GFR (Non-Af Amer) > 60 Glucose 172 H Calcium 8.4 Total Bilirubin 0.6 AST 310 H ALT 105 H Alkaline Phosphatase 68 Total Protein 6.3 Albumin 3.4 L Triglycerides 134 Cholesterol 139.02 LDL Cholesterol Direct 66 VLDL Cholesterol 27.0 HDL Cholesterol 32 L 07/19/17 05:03 Creatine Kinase 48396 H Impressions: Chest X-Ray 07/18/17 12:03 IMPRESSION: Left lower lobe pneumonia. Chest/Abdomen CTA 07/18/17 12:55 IMPRESSION: 1. NORMAL CTA OF THE CHEST. NO PULMONARY EMBOLI. 2. DIFFUSE PATCHY AIRSPACE DISEASE THROUGHOUT BOTH LUNGS. MOST LIKELY DUE TO MULTIFOCAL PNEUMONIA. Assessment & Plan - Diagnosis (1) Bilateral pneumonia Qualifiers: Pneumonia type: due to unspecified organism Lung location: lower lobe of lung Qualified Code(s): J18.9 - Pneumonia, unspecified organism Is this a current diagnosis for this admission?: Yes Plan: Day 5 of Levaquin. 2 of Rocephin. Pending urine for Legionella antigen. Influenza screen ordered. Continue BiPAP support, nebulizer treatments every 4 hours, cough suppressant as needed. Sputum culture if able. Steroids added. Remote history of smoking. (2) Obesity (BMI 30-39.9) Is this a current diagnosis for this admission?: Yes (3) Hypoxemia Is this a current diagnosis for this admission?: Yes Plan: As above. (4) Rhabdomyolysis Qualifiers: Rhabdomyolysis type: non-traumatic Qualified Code(s): M62.82 - Rhabdomyolysis Is this a current diagnosis for this admission?: Yes (5) Diarrhea Qualifiers: Diarrhea type: unspecified type Qualified Code(s): R19.7 - Diarrhea, unspecified Is this a current diagnosis for this admission?: Yes Plan: Antibiotic associated. Negative stool C. difficile. Continue probiotics and Questran. (6) Diabetes Qualifiers: Diabetes mellitus type: type 2 Is this a current diagnosis for this admission?: Yes Plan: Diet controlled. Insulin sliding scale. - Time Time Spent with patient: 35 or more minutes
[2017-07-19] MEDS ORDERED: GUAIFENESIN 600 MG TABLET.SA PO SCH (10:00)
[2017-07-19] MEDS ORDERED: ENOXAPARIN SODIUM INJ 40 MG/0.4 ML DISP.SYRIN SUBCUT SCH (10:00)
[2017-07-19] MEDS ORDERED: CEFTRIAXONE 1 GM/D5W RTU 1 GM/50 ML RTUPB IV SCH (10:00)
[2017-07-19] MEDS ORDERED: PANTOPRAZOLE SODIUM 40 MG VIAL IV SCH (10:00)
[2017-07-19] MEDS ORDERED: LEVOFLOXACIN 750 MG/D5W RTU 750 MG/150 ML RTUPB IV SCH (10:00)
[2017-07-19 10:19] LABS: A TYPE INFLUENZA AG NEGATIVE (NEGATIVE); B INFLUENZA AG NEGATIVE (NEGATIVE)
[2017-07-19] MEDS ORDERED: IPRATROPIUM/ALBUTEROL 0.5-2.5 MG/3 ML AMPUL NEB ONE (10:30)
[2017-07-19] MEDS: METHYLPREDNISOLONE INJ 40 MG/1 ML SDV IV SCH ×2 (10:48→17:37)
[2017-07-19] MEDS: IPRATROPIUM/ALBUTEROL 0.5-2.5 MG/3 ML AMPUL NEB SCH ×4 (11:50→23:32)
[2017-07-19] MEDS ORDERED: VANCOMYCIN HCL 0 MG in DEXTROSE 5%-WATER 250 ML IV NR (14:00)
[2017-07-19] MEDS ORDERED: CEFEPIME 2 GM/D5W RTU 2 GM/50 ML RTUPB IV SCH (14:00)
[2017-07-19] MEDS ORDERED: LORAZEPAM 1 MG TABLET PO PRN (14:47)
[2017-07-19] MEDS ORDERED: ONDANSETRON 4 MG TAB.RAPDIS PO PRN (14:48)
[2017-07-19] MEDS ORDERED: ONDANSETRON HCL INJ/PF 4 MG/2 ML SDV IV PRN (14:49)
[2017-07-19] MEDS: CEFEPIME HCL 2 GM in DEXTROSE 5%-WATER 50 ML IV SCH (18:08)
[2017-07-19] MEDS ORDERED: PHARMACY COMMUNICATION ORDER MC NR ×2 (21:45→22:00)
[2017-07-19 21:49] LABS: ARTERIAL BLOOD BASE EXCESS -2.5 mmol/L; ARTERIAL BLOOD H2CO3 1.28 mmol/L (1.05-1.35); ARTERIAL BLOOD HCO3 23.1 mmol/L (20-26); ARTERIAL BLOOD O2 SATURATION 90.4 % (94-98); ARTERIAL BLOOD PCO2 42.6 mmHg (35-45); ARTERIAL BLOOD PH 7.35 (7.35-7.45); ARTERIAL BLOOD PO2 61.2 mmHg (80-100); ARTERIAL BLOOD TOTAL CO2 24.4 mmol/L (23-27)
[2017-07-19 21:50] LABS: ARTERIAL BLOOD FIO2 100%
[2017-07-19] MEDS ORDERED: ACETAMINOPHEN SOLN 325 MG/10.15 ML UDCUP NG PRN (21:53)
[2017-07-19] MEDS ORDERED: ONDANSETRON 4 MG TAB.RAPDIS NG PRN (21:55)
[2017-07-19] MEDS ORDERED: GUAIFENESIN SYRP 200 MG/10 ML UDC PO PRN (21:58)
[2017-07-19] MEDS ORDERED: METHYLPREDNISOLONE INJ 125 MG/2 ML SDV IV ONE (22:00)
[2017-07-19] MEDS ORDERED: GUAIFENESIN SYRP 200 MG/10 ML UDC NG PRN (22:00)
--- NOTE | 2017-07-19 22:05 | RADIOLOGY REPORT (SQ) ---
EXAM DESCRIPTION: CHEST SINGLE VIEW COMPLETED DATE/TIME: 07/19/2017 9:53 pm REASON FOR STUDY: shortness of breath COMPARISON: 07/18/2017 EXAM PARAMETERS: NUMBER OF VIEWS: One view. TECHNIQUE: Single frontal radiographic view of the chest acquired. RADIATION DOSE: NA LIMITATIONS: None. FINDINGS: LUNGS AND PLEURA: Increasing airspace opacity in the right lung base. Persistent airspace opacity in the left lung base with slight improved aeration. No pneumothorax. No significant effus ion. MEDIASTINUM AND HILAR STRUCTURES: Stable. HEART AND VASCULAR STRUCTURES: Stable. BONES: No acute findings. HARDWARE: None in the chest. OTHER: No other significant finding. IMPRESSION: Increasing airspace opacity in the right lung base. Persistent airspace opacity in the left lung base with slight improved aeration. TECHNICAL DOCUMENTATION: JOB ID: [id number] [place]-72 2010 [employer]- All Rights Reserved
[2017-07-19] MEDS ORDERED: PROPOFOL 100 ML IV ONE (22:12)
[2017-07-19] MEDS ORDERED: VECURONIUM BROMIDE INJ 10 MG VIAL IV ONE ×2 (22:23→22:27)
[2017-07-19] MEDS ORDERED: FENTANYL CITRATE INJ/PF 100 MCG/2 ML AMPUL ONE (22:36)
[2017-07-19 22:37] LABS: FIBRINOGEN 462 mg/dL (209-497); INTERNATIONAL RATION (INR) 0.95; PROTHROMBIN TIME 13.4 SEC (11.4-15.4)
[2017-07-19 22:38] LABS: PARTIAL THROMBOPLASTIN TIME 33.8 SEC (23.5-35.8)
[2017-07-19] MEDS ORDERED: NYSTATIN TOPICAL POWDER 15 GM TP ONE (22:45)
[2017-07-19 22:48] LABS: ANION GAP 7 (5-19); BLOOD UREA NITROGEN 13 mg/dL (7-20); CALCIUM 8.4 mg/dL (8.4-10.2); CARBON DIOXIDE 26 mmol/L (22-30); CHLORIDE 100 mmol/L (98-107); GLUCOSE 203 mg/dL (75-110); MAGNESIUM 1.9 mg/dL (1.6-2.3); PHOSPHORUS 3.1 mg/dL (2.5-4.5); POTASSIUM 5.1 mmol/L (3.6-5.0)
--- NOTE | 2017-07-19 22:55 | RADIOLOGY REPORT (SQ) ---
EXAM DESCRIPTION: CHEST SINGLE VIEW COMPLETED DATE/TIME: 07/19/2017 10:29 pm REASON FOR STUDY: will call for tube placement COMPARISON: Earlier exam same date EXAM PARAMETERS: NUMBER OF VIEWS: One view. TECHNIQUE: Single frontal radiographic view of the chest acquired. RADIATION DOSE: NA LIMITATIONS: None. FINDINGS: LUNGS AND PLEURA: Similar bilateral airspace opacities. MEDIASTINUM AND HILAR STRUCTURES: Stable. HEART AND VASCULAR STRUCTURES: Stable. BONES: No acute findings. HARDWARE: Endotracheal tube tip overlies the lower trachea, approximately 3.8 cm above the level of t he nano. Nasogastric catheter is coiled in the body of the stomach. OTHER: No other significant finding. IMPRESSION: Endotracheal tube tip overlies the lower trachea, approximately 3.8 cm above the level o f the nano. Nasogastric catheter is coiled in the body of the stomach. TECHNICAL DOCUMENTATION: JOB ID: [id number] [place]-72 2010 [employer]- All Rights Reserved
[2017-07-19] MEDS: FENTANYL CITRATE INJ/PF 100 MCG/2 ML AMPUL IV PRN (23:00)
[2017-07-19] MEDS: MIDAZOLAM HCL 100 ML IV PRN (23:01)
[2017-07-19 23:30] LABS: ARTERIAL BLOOD BASE EXCESS -6.1 mmol/L; ARTERIAL BLOOD H2CO3 1.66 mmol/L (1.05-1.35); ARTERIAL BLOOD HCO3 22.2 mmol/L (20-26); ARTERIAL BLOOD O2 SATURATION 94.6 % (94-98); ARTERIAL BLOOD PH 7.22 (7.35-7.45); ARTERIAL BLOOD PO2 86.4 mmHg (80-100); ARTERIAL BLOOD TOTAL CO2 23.9 mmol/L (23-27)
[2017-07-19 23:36] LABS: ARTERIAL BLOOD FIO2 100%
[2017-07-19] MEDS ORDERED: MAGNESIUM SULFATE/D5W 1 GM/100 ML RTUPB IV ONE (23:57)
--- NOTE | 2017-07-20 00:04 | RADIOLOGY REPORT (SQ) ---
EXAM DESCRIPTION: U/S ABDOMEN LIMITED W/O DOP COMPLETED DATE/TIME: 07/19/2017 5:35 pm REASON FOR STUDY: Abnormal LFTs COMPARISON: None. TECHNIQUE: Dynamic and static grayscale images acquired of the right upper quadrant and recorded on PACS. Additional selected color Doppler and spectral images recorded. LIMITATIONS: Study limited due to acoustical interference from fat or from air in the bowel. FINDINGS: PANCREAS: Parts or all of the pancreas poorly seen secondary to acoustical interference fr om fat or from air in the bowel. LIVER: Echotexture is coarse with increased echogenicity consistent with fatty infiltration. No mass es. LIVER VASCULATURE: Normal directional flow of the main portal vein and hepatic veins. GALLBLADDER: Poorly seen secondary to acoustical interference from fat or from air in the bowel. ULTRASOUND-DETECTED JACOBS'S SIGN: Negative. INTRAHEPATIC DUCTS AND COMMON DUCT: CBD and intrahepatic ducts normal caliber. No filling defects. INFERIOR VENA CAVA: Normal flow. AORTA: Poorly seen secondary to acoustical interference from fat or from air in the bowel. RIGHT KIDNEY: Normal size. Normal echogenicity. No solid or suspicious masses. No hydronephrosis. No calcifications. PERITONEAL CAVITY AND RIGHT PLEURAL SPACE: No ascites or effusions. OTHER: No other significant finding. IMPRESSION: Study limited due to acoustical interference from fat or from air in the bowel. Gallbladder not identified. TECHNICAL DOCUMENTATION: JOB ID: [id number] [id number] [employer]- All Rights Reserved
[2017-07-20] MEDS: PROPOFOL 100 ML IV PRN ×5 (00:08→08:20)
--- NOTE | 2017-07-20 00:47 | RADIOLOGY REPORT (SQ) ---
EXAM DESCRIPTION: CHEST SINGLE VIEW CLINICAL HISTORY: Central Line Placement COMPARISON: 07/19/2017 FINDINGS: Single frontal view of the chest. Significant respiratory motion artifact. Interval placement of right IJ central venous catheter with tip at the age of caval junction. Endotracheal tube 5 cm above the nano. NG tube with tip below the diaphragm. Leads overlie the chest. No definite pneumothorax identified. Cardiomegaly. Diffuse bilateral airspace opacities. Low lung volumes. No definite new osseous abnormalities. IMPRESSION: 1. Interval placement of right IJ central venous catheter with tip at the atriocaval junction.
--- NOTE | 2017-07-20 00:51 | Operative Report ---
Operative Report DATE OF SURGERY: 07/20/17 Operative Report: After appropriate timeout patient's entire neck and right clavicular area were prepped and draped in usual sterile fashion with chlorhexidine. Following this we draped the ultrasound probe. Gel was placed inside the sterile sleeve and sterile gel was applied to the patient's neck. Full gown, mask, hat, and drape were used to assure sterility on the field. Following this we carefully inspected the patient's neck the ultrasound and a reasonable size jugular vein was identified. The pulsating carotid artery could be seen nearby. Following this local anesthetic was infiltrated directly over the jugular vein. Following this a 18-gauge Cook needle was used to cannulate the vein under direct vision on the third pass with the ultrasound guidance. Good dark blood was aspirated. Then using Seldinger technique we carefully passed a guidewire through the needle removed the needle placed a small neck in the skin at the exit site of the wire then advanced the dilator. Following this the catheter was advanced to approximately 16 cm at the level of the skin at the neck. Good dark blood was aspirated from each of the ports. Each of the ports were flushed with sterile saline applying the appropriate connectors to the ends of the ports on the central line. This was a triple-lumen central line. Following this good dark blood was aspirated and saline was used to flush. The securing device was applied to the catheter just distal to the exit site and an antibiotic disc was applied at the exit site. This was sutured into place with 3-0 nylon and also at the Y connector another suture was placed after placing local anesthetic in the skin such that the catheter would have a good curvilinear course along the right side of the neck. Patient tolerated procedure well. Patient was in the flat to Trendelenburg position during the procedure. He tolerated it well. We called for a chest x-ray. Patient was noted to have the catheter in good position on the chest x-ray. I gave permission for the patient to have the catheter use. PREOPERATIVE DIAGNOSIS: Multi lobar pneumonia possible sepsis POSTOPERATIVE DIAGNOSIS: Same plus need for central venous access. OPERATION: Placement of right IJ CVP line with ultrasound guidance SURGEON: Joshua Valderrama MD ANESTHESIA: Local TISSUE REMOVED OR ALTERED: none COMPLICATIONS: none
[2017-07-20] MEDS: CEFEPIME HCL 2 GM in DEXTROSE 5%-WATER 50 ML IV SCH (01:28)
[2017-07-20] MEDS: VANCOMYCIN HCL 1,500 MG in DEXTROSE 5%-WATER 250 ML IV SCH ×2 (01:39→02:25)
[2017-07-20 01:54] LABS: ARTERIAL BLOOD BASE EXCESS -7.1 mmol/L; ARTERIAL BLOOD H2CO3 1.74 mmol/L (1.05-1.35); ARTERIAL BLOOD HCO3 21.7 mmol/L (20-26); ARTERIAL BLOOD O2 SATURATION 89.7 % (94-98); ARTERIAL BLOOD PCO2 57.8 mmHg (35-45); ARTERIAL BLOOD PO2 70.1 mmHg (80-100); ARTERIAL BLOOD TOTAL CO2 23.5 mmol/L (23-27)
[2017-07-20 01:55] LABS: ARTERIAL BLOOD FIO2 85%
[2017-07-20 01:57] LABS: ARTERIAL BLOOD PH 7.19 (7.35-7.45)
[2017-07-20] MEDS ORDERED: METHYLPREDNISOLONE INJ 40 MG/1 ML SDV IV SCH (02:00)
[2017-07-20] MEDS ORDERED: SODIUM BICARBONATE 8.4% INJ 50 MEQ/50 ML DISP.SYRIN IV ONE (02:20)
[2017-07-20] MEDS ORDERED: NORMAL SALINE 1000 ML 2,000 ML IV ONE (02:23)
--- NOTE | 2017-07-20 02:50 | PDOC TRANSFER SUMMARY ---
General Admission Date/PCP: 07/18/17 15:07 DIGNA MADDEN Admission Date: 07/18/17 Transfer Date: 07/20/17 Accepting Facility: [facility] Accepting Physician: Dr. Alvarenga Resuscitation Status: Full Code - Transfer Diagnosis (1) Acute hypoxemic respiratory failure Is this a current diagnosis for this admission?: Yes (2) Sepsis Is this a current diagnosis for this admission?: Yes (3) Bilateral pneumonia Is this a current diagnosis for this admission?: Yes (4) Rhabdomyolysis Is this a current diagnosis for this admission?: Yes (5) Metabolic acidosis Is this a current diagnosis for this admission?: Yes (6) Acute respiratory acidosis Is this a current diagnosis for this admission?: Yes (7) Obstructive sleep apnea Is this a current diagnosis for this admission?: Yes (8) Diabetes Is this a current diagnosis for this admission?: Yes (9) Diarrhea Is this a current diagnosis for this admission?: Yes (10) Morbid obesity with BMI of 45.0-49.9, adult Is this a current diagnosis for this admission?: Yes - Transfer Medications Home Medications: Hydrocodone Bit/Acetaminophen [Vicodin 5-500 mg Tablet] 1 - 2 tab PO ASDIR PRN 06/10/11 Transfer Medications: Current Medications Acetaminophen (Tylenol Soln 325 Mg/10.15 Ml Udcup) 650 mg NG Q4HP PRN PRN Reason: FEVER >101 Stop: 08/18/17 21:52 Albuterol/Ipratropium (Duoneb 3 Ml Ampul) 3 ml NEB RTQ4 [facility] Stop: 08/18/17 11:59 Last Admin: 07/19/17 23:32 Dose: 3 ml Albuterol/Ipratropium (Duoneb 3 Ml Ampul) 3 ml NEB RTQ2HP PRN PRN Reason: SHORTNESS OF BREATH/WHEEZING Stop: 08/18/17 09:31 Dextrose (Dextrose Inj 50% Syringe (25 Gm/50 Ml)) 12.5 gm IV PRN PRN; Protocol PRN Reason: FOR BG 50-69 IN ALERT PATIENT Stop: 08/18/17 09:34 Dextrose (Dextrose Inj 50% Syringe (25 Gm/50 Ml)) 25 gm IV PRN PRN PRN Reason: Protocol Stop: 08/18/17 09:34 Enoxaparin Sodium (Lovenox Inj 40 Mg/0.4 Ml Disp.Syrin) 40 mg SUBCUT DAILY [facility] Stop: 08/18/17 09:59 Last Admin: 07/19/17 09:39 Dose: 40 mg Fentanyl Citrate (Sublimaze Inj/Pf 100 Mcg/2 Ml Ampule) 100 mcg IV Q4HP PRN Stop: 07/26/17 22:33 Last Admin: 07/19/17 23:00 Dose: 100 mcg Glucagon (Glucagen Inj 1 Mg Vial) 1 mg IM PRN PRN; Protocol PRN Reason: Evaluate for BG < 70 Stop: 08/18/17 09:34 Glucose (Glutose 40% Gel 15 Gm Tube) 15 gm PO PRN PRN; Protocol PRN Reason: FOR BG 50-69 IN ALERT PATIENT Stop: 08/18/17 09:34 Glucose (Glutose 40% Gel 15 Gm Tube) 30 gm PO PRN PRN; Protocol PRN Reason: FOR BG < 50 IN ALERT PATIENT Stop: 08/18/17 09:34 Guaifenesin (Robitussin Syrup 200 Mg/10 Ml Ud Cup) 200 mg NG QIDP PRN PRN Reason: COUGH Stop: 08/18/17 21:57 Levofloxacin/Dextrose (Levaquin Rtu 750 Mg/D5w 150 Ml Premix) 750 mg in 150 mls @ 100 mls/hr IV DAILY [facility] Stop: 07/26/17 09:59 Last Admin: 07/19/17 10:47 Dose: 150 ml Sodium Chloride (Nacl 0.9% 1000 Ml Iv Soln) 1,000 mls @ 200 mls/hr IV CONTINUOUS PRN PRN Reason: THIS MED IS NOT "PRN" Stop: 08/17/17 14:34 Last Admin: 07/19/17 09:41 Dose: 1,000 ml Cefepime HCl 2 gm/ Dextrose 50 mls @ 100 mls/hr IV Q8A [facility] Stop: 07/26/17 17:59 Last Admin: 07/20/17 01:28 Dose: 2 gm Vancomycin HCl 1,500 mg/ (Dextrose) 250 mls @ 166.667 mls/hr IV Q6A [facility] Stop: 07/26/17 20:59 Last Admin: 07/20/17 02:25 Dose: 1,500 mg Midazolam HCl (Versed Rtu 50 Mg/100 Ml Premix Bag) 100 mls @ 0 mls/hr IV CONTINUOUS PRN; Protocol; Titrate PRN Reason: THIS MED IS NOT "PRN" Stop: 07/26/17 21:46 Last Admin: 07/19/17 23:01 Dose: 100 ml Propofol (Diprivan Rtu 1000 Mg/100 Ml Inf.Bottle) 100 mls @ 0 mls/hr IV CONTINUOUS PRN; Protocol; Titrate PRN Reason: THIS MED IS NOT "PRN" Stop: 08/18/17 21:46 Last Admin: 07/20/17 01:38 Dose: 100 ml Insulin Human Regular (Humulin R (Pyxis) Insulin 100 Unit/Ml 3ml) 0 - 12 unit SUBCUT Q6HP PRN PRN Reason: Protocol Stop: 08/18/17 09:34 Last Admin: 07/19/17 17:36 Dose: 2 unit Lactobacillus Acidophilus (Bacid 250 Mg Tablet) 250 mg NG BID [facility] Stop: 08/19/17 09:59 Methylprednisolone Sodium Succinate (Solu-Medrol Inj/Pf 125 Mg/2 Ml Sdv) 125 mg IV Q8 [facility] Stop: 08/19/17 05:59 Nystatin (Mycostatin Topical Powder 15 Gm) 1 applic TP BID [facility] Stop: 07/27/17 09:59 Ondansetron HCl (Zofran Inj/Pf 4 Mg/2 Ml Sdv) 4 mg IV Q6HP PRN PRN Reason: FOR NAUSEA/VOMITING Stop: 08/18/17 14:48 Ondansetron HCl (Zofran Odt 4 Mg Tablet) 4 mg NG Q4HP PRN Stop: 08/18/17 21:54 Pantoprazole Sodium (Protonix Iv Inj 40 Mg Vial) 40 mg IV DAILY [facility] Stop: 07/22/17 09:59 Last Admin: 07/19/17 10:48 Dose: 40 mg Pharmacy Profile Note (Medication Communication Order) 1 each MC .NOTICE NR Stop: 08/18/17 21:44 Pharmacy Profile Note (Medication Communication Order) 1 each MC .NOTICE NR Stop: 08/18/17 21:59 Sodium Chloride (Saline Flush 2.5 Ml Monoject Prefil Syrin) 2.5 ml IV Q8 [facility] Stop: 08/17/17 21:59 Last Admin: 07/19/17 23:01 Dose: Not Given - Allergies Allergies/Adverse Reactions: No Known Allergies Allergy (Verified 07/18/17 11:07) - Diet/Activity Discharge Diet: Other (Comments) - Currently n.p.o. Discharge Activity: Bedrest Hospital Course Hospital Course: Patient apparently initially presented to the emergency department on July 16 and was diagnosed with a left lower lobe pneumonia given Levaquin and sent home. Upon return, patient was found to be hypoxic at 85% on 6 L nasal cannula and was placed on BiPAP. Patient was found to have a multifocal pneumonia on CTA. CTA did not reveal any pulmonary embolus. Patient had just returned from a trip to [place]. Patient was admitted on 07/18, but did not improve over the days despite aggressive antibiotic therapy and BiPAP. Patient was breathing approximately 40 times a minute and hypoxic into the low 80s on 100% BiPAP when I visited him this evening. Patient was taken to the ICU and intubated. Patient required increasing amounts of PEEP to maintain saturation. Central line was placed and CVP was found to be 13. Patient was found to have a concommittant metabolic and respiratory acidosis. Patient was started on bicarbonate drip. At this time in discussing case with pulmonary medicine they felt he would be best served at a larger facility. Transfer was initiated. Patient was felt also found to be in rhabdomyolysis with a CPK of up to 19,000 today. Patient's reports that he fell several days prior to admission. She reported to him at that time that he felt like he pulled the mesh around his hernia. IV fluids have been initiated since admission and electrolytes have been monitored. Physical Exam Vital Signs: Temp Pulse Resp BP Pulse Ox 99.1 F 83 22 H 99/59 L 98 07/20/17 01:46 07/19/17 23:32 07/20/17 02:09 07/20/17 02:09 07/20/17 02:09 Intake & Output 07/18/17 07/19/17 07/20/17 06:59 06:59 06:59 Intake Total 310 2681 Output Total 900 1000 Balance -590 1681 Weight 164.3 kg 164.3 kg Exam: General: Intubated, sedated, mechanically ventilated HEENT: AT/NC, PERRL, EOMI, oropharynx is moist, pink, no scleral icterus, no conjunctival injection Neck: No JVD, trachea midline Chest: Rhonchi bilaterally CV: Regular rate and rhythm, normal S1 and S2, no murmur, rub, or gallop Abdomen: Soft, nontender to palpation, nondistended, active bowel sounds; no rebound, rigidity, or guarding Extremities: No cyanosis, clubbing or edema Results Laboratory Results: 07/19/17 05:03 07/19/17 22:22 07/19/17 07/19/17 07/19/17 05:03 05:03 05:03 WBC 4.0 RBC 5.14 Hgb 14.9 Hct 42.4 MCV 83 MCH 29.1 MCHC 35.2 RDW 14.0 Plt Count 109 L Carbonic Acid HCO3/H2CO3 Ratio ABG pH ABG pCO2 ABG pO2 ABG HCO3 ABG O2 Saturation ABG Base Excess FiO2 Sodium 132.0 L Potassium 4.8 Chloride 98 Carbon Dioxide 23 Anion Gap 11 BUN 15 Creatinine 0.73 Est GFR ( Amer) > 60 Est GFR (Non-Af Amer) > 60 Glucose 172 H Calcium 8.4 Phosphorus Magnesium 2.0 Total Bilirubin 0.6 AST 310 H ALT 105 H Alkaline Phosphatase 68 Total Protein 6.3 Albumin 3.4 L Triglycerides 134 Cholesterol 139.02 LDL Cholesterol Direct 66 VLDL Cholesterol 27.0 HDL Cholesterol 32 L 07/19/17 07/19/17 07/19/17 21:30 22:22 23:08 WBC RBC Hgb Hct MCV MCH MCHC RDW Plt Count Carbonic Acid 1.28 1.66 H HCO3/H2CO3 Ratio 18:1 13:1 ABG pH 7.35 7.22 L ABG pCO2 42.6 55.0 H ABG pO2 61.2 L 86.4 ABG HCO3 23.1 22.2 ABG O2 Saturation 90.4 L 94.6 ABG Base Excess -2.5 -6.1 FiO2 100% 100% Sodium 133.0 L Potassium 5.1 H Chloride 100 Carbon Dioxide 26 Anion Gap 7 BUN 13 Creatinine 0.77 Est GFR ( Amer) > 60 Est GFR (Non-Af Amer) > 60 Glucose 203 H Calcium 8.4 Phosphorus 3.1 Magnesium 1.9 Total Bilirubin AST ALT Alkaline Phosphatase Total Protein Albumin Triglycerides Cholesterol LDL Cholesterol Direct VLDL Cholesterol HDL Cholesterol 07/20/17 01:40 WBC RBC Hgb Hct MCV MCH MCHC RDW Plt Count Carbonic Acid 1.74 H HCO3/H2CO3 Ratio 12:1 ABG pH 7.19 L* ABG pCO2 57.8 H ABG pO2 70.1 L ABG HCO3 21.7 ABG O2 Saturation 89.7 L ABG Base Excess -7.1 FiO2 85% Sodium Potassium Chloride Carbon Dioxide Anion Gap BUN Creatinine Est GFR ( Amer) Est GFR (Non-Af Amer) Glucose Calcium Phosphorus Magnesium Total Bilirubin AST ALT Alkaline Phosphatase Total Protein Albumin Triglycerides Cholesterol LDL Cholesterol Direct VLDL Cholesterol HDL Cholesterol 07/19/17 05:03 Creatine Kinase 03407 H Impressions: Chest/Abdomen CTA 07/18/17 12:55 IMPRESSION: 1. NORMAL CTA OF THE CHEST. NO PULMONARY EMBOLI. 2. DIFFUSE PATCHY AIRSPACE DISEASE THROUGHOUT BOTH LUNGS. MOST LIKELY DUE TO MULTIFOCAL PNEUMONIA. Abdomen Ultrasound 07/19/17 00:00 IMPRESSION: Study limited due to acoustical interference from fat or from air in the bowel. Gallbladder not identified. Chest X-Ray 07/20/17 00:00 IMPRESSION: 1. Interval placement of right IJ central venous catheter with tip at the atriocaval junction. Status: Imported from PACS Plan Discharge Plan: Total time spent with patient including patient family discussion, physical examination, discussion with consultants, and formulation of plan was 65 minutes of critical care time. Time Spent: Greater than 30 Minutes
[2017-07-20] MEDS ORDERED: VECURONIUM BROMIDE INJ 10 MG VIAL IV ONE ×2 (02:55→02:56)
[2017-07-20] MEDS: FENTANYL CITRATE INJ/PF 100 MCG/2 ML AMPUL IV PRN (03:05)
[2017-07-20] MEDS: IPRATROPIUM/ALBUTEROL 0.5-2.5 MG/3 ML AMPUL NEB SCH ×2 (03:10→08:46)
--- NOTE | 2017-07-20 03:34 | RADIOLOGY REPORT (SQ) ---
EXAM DESCRIPTION: CHEST SINGLE VIEW CLINICAL HISTORY: ET adjustment COMPARISON: Same day FINDINGS: Single frontal view of the chest. Endotracheal tube with tip 8 cm above the nano. NG tube with tip below the diaphragm. Right IJ central venous catheter. Diffuse bilateral airspace consolidation. Cardiomegaly. No new osseous abnormalities. Upper abdominal soft tissues are unremarkable. IMPRESSION: 1. No significant interval change. Tubes and lines as detailed above.
[2017-07-20 04:08] LABS: ARTERIAL BLOOD BASE EXCESS -5.5 mmol/L; ARTERIAL BLOOD HCO3 21.3 mmol/L (20-26); ARTERIAL BLOOD O2 SATURATION 93.3 % (94-98); ARTERIAL BLOOD PCO2 46.6 mmHg (35-45); ARTERIAL BLOOD PH 7.28 (7.35-7.45); ARTERIAL BLOOD PO2 75.2 mmHg (80-100); ARTERIAL BLOOD TOTAL CO2 22.7 mmol/L (23-27)
[2017-07-20 04:09] LABS: ARTERIAL BLOOD FIO2 100%
[2017-07-20 04:16] LABS: ABSOLUTE LYMPHOCYTES (AUTO) 0.4 10^3/uL (0.5-4.7); ABSOLUTE MONOCYTES (AUTO) 0.3 10^3/uL (0.1-1.4); ABSOLUTE NEUT (AUTO) 3.9 10^3/uL (1.7-8.2); BASOPHILS % (AUTO) 0.2 % (0-2); HEMATOCRIT 37.6 % (37.9-51.0); LYMPHOCYTES % (AUTO) 8.7 % (13-45); MEAN CORPUSCULAR HEMOGLOBIN 29.3 pg (27.0-33.4); MEAN CORPUSCULAR HGB CONC 34.6 g/dL (32.0-36.0); MEAN CORPUSCULAR VOLUME 85 fl (80-97); MONOCYTES % (AUTO) 5.8 % (3-13); PLATELET COUNT 126 10^3/uL (150-450); RED BLOOD COUNT 4.45 10^6/uL (4.35-5.55); RED CELL DISTRIBUTION WIDTH 14.3 % (11.5-14.0); SEGMENTED NEUTROPHILS % (AUTO) 85.3 % (42-78); TOTAL CELLS COUNTED % (AUTO) 100 %; WHITE BLOOD COUNT 4.6 10^3/uL (4.0-10.5)
[2017-07-20 04:37] LABS: ALANINE AMINOTRANSFERASE 109 U/L (21-72); ALBUMIN 2.6 g/dL (3.5-5.0); ALKALINE PHOSPHATASE 75 U/L (38-126); ANION GAP 7 (5-19); ASPARTATE AMINO TRANSFERASE 253 U/L (17-59); BILIRUBIN,DIRECT 0.4 mg/dL (0.0-0.4); BILIRUBIN,TOTAL 0.6 mg/dL (0.2-1.3); BLOOD UREA NITROGEN 16 mg/dL (7-20); CALCIUM 7.6 mg/dL (8.4-10.2); CARBON DIOXIDE 24 mmol/L (22-30); CHLORIDE 103 mmol/L (98-107); GLUCOSE 244 mg/dL (75-110); POTASSIUM 5.3 mmol/L (3.6-5.0); SODIUM 134.4 mmol/L (137-145)
[2017-07-20 04:38] LABS: TOTAL PROTEIN 4.7 g/dL (6.3-8.2)
[2017-07-20 04:54] LABS: CREATINE KINASE 12486 U/L (55-170)
[2017-07-20] MEDS: MIDAZOLAM HCL 100 ML IV PRN (05:05)
[2017-07-20 05:12] LABS: ARTERIAL BLOOD BASE EXCESS -7.2 mmol/L; ARTERIAL BLOOD H2CO3 1.64 mmol/L (1.05-1.35); ARTERIAL BLOOD HCO3 21.2 mmol/L (20-26); ARTERIAL BLOOD O2 SATURATION 93.6 % (94-98); ARTERIAL BLOOD PCO2 54.4 mmHg (35-45); ARTERIAL BLOOD PH 7.21 (7.35-7.45); ARTERIAL BLOOD PO2 82.4 mmHg (80-100); ARTERIAL BLOOD TOTAL CO2 22.8 mmol/L (23-27)
[2017-07-20 05:16] LABS: ARTERIAL BLOOD FIO2 100%
[2017-07-20] MEDS ORDERED: METHYLPREDNISOLONE INJ 125 MG/2 ML SDV IV SCH (06:00)
[2017-07-20] MEDS ORDERED: DEXTROSE 5%-WATER 1000 ML 1,000 ML with SODIUM BICARBONATE 150 MEQ IV PRN ×2 (06:16)
[2017-07-20 08:25] VITALS: BP 111/60
--- NOTE | 2017-07-20 09:34 | RADIOLOGY REPORT (SQ) ---
EXAM DESCRIPTION: CHEST SINGLE VIEW COMPLETED DATE/TIME: 07/20/2017 9:17 am REASON FOR STUDY: ET TUBE PLACEMENT COMPARISON: 07/20/2017 at 0311 hours. EXAM PARAMETERS: NUMBER OF VIEWS: One view. TECHNIQUE: Single frontal radiographic view of the chest acquired. RADIATION DOSE: NA LIMITATIONS: None. FINDINGS: LUNGS AND PLEURA: Diffuse bilateral parenchymal opacities unchanged. MEDIASTINUM AND HILAR STRUCTURES: No masses. Contour normal. HEART AND VASCULAR STRUCTURES: Cardiomegaly. BONES: No acute findings. HARDWARE: Endotracheal tube with the tip located 4 cm proximal to the nano. Nasogastric tube with the tip in the stomach. Central line with the tip at the level of the superior vena cava. OTHER: No other significant finding. IMPRESSION: LIFE LINES DESCRIBED APPEAR TO BE IN SATISFACTORY POSITION. OTHERWISE NO CHANGE IN A PPEARANCE OF THE CHEST. TECHNICAL DOCUMENTATION: JOB ID: [id number] [employer]- All Rights Reserved
[2017-07-20] MEDS ORDERED: LACTOBACILLUS ACIDOPHILUS 250 MG TAB NG SCH (10:00)
[2017-07-20] MEDS ORDERED: NYSTATIN TOPICAL POWDER 15 GM TP SCH (10:00)
--- NOTE | 2017-07-20 15:43 | PROGRESS NOTE E ---
Progress Note NAME: EVERTON GUERRIER : 1970 AGE: 46Y DATE: 07/20/2017 ROOM: 601 SUBJECTIVE: The patient was seen earlier today on rounds. The patient was having high pressure alarms, and therefore, I did evaluate the patient and it appears that the patient does appear to have good compliance. I did decrease the patient's FiO2 down to 60% from 100% and the patient desaturated to 88% in spite of 18 of PEEP. The patient is still requiring high oxygen demand. The patient, on examination, appears to be moving air well. The patient's CVP reading is 12; therefore, do not feel we are dealing with a volume issue. The patient's repeat potassium is 5.3; however, this will not be addressed at this time. The patient's rhabdo overall appears improved. Therefore, did decrease the patient's fluids to 200. Patient is unable to voice any concerns at this time. REVIEW OF SYSTEMS: Unobtainable. MEDICATIONS: Medications have been reviewed. OBJECTIVE: GENERAL: The patient is a 46-year-old male who is currently intubated and sedated, unable to provide any history. The patient is on propofol and Versed at this time. SKIN: Warm and dry. No rash. He is not diaphoretic. HEENT: Pupils are reactive. Conjunctiva is pink. The patient has no evidence of JVP. CARDIOVASCULAR SYSTEM: Heart is regular. There is no murmur or rub. CHEST: Diminished, but symmetrical. Patient is breathing over the vent for approximately 30 breaths a minute. ABDOMEN: Soft, nontender, nondistended. BACK: No obvious sacral edema. EXTREMITIES: No clubbing, cyanosis, edema. PSYCHIATRIC: Unable to fully assess. DIAGNOSTICS: Lab values are as follows: Hematology obtained on 07/20/2017: WBCs are 4.6, hemoglobin is 13.0, hematocrit is 37.6, platelet count is 126,000. Chemistry obtained on 07/20/2017: Sodium is 134, potassium 5.3, chloride is 103, carbon dioxide is 24, BUN 16, creatinine is 0.90, glucose 224, [place] [address]. IMPRESSION AND PLAN: 1. MULTILOBULAR PNEUMONIA. Will continue antibiotic coverage. The patient would benefit from bronchoscopy. The patient is to be transferred to an cutter out service. 2. RESPIRATORY ACIDOSIS. Will allow the patient to breath out of the vent for now and will monitor for evidence of alkalosis. Will repeat ABG if transport is not here within the hour and make further adjustments accordingly. Will follow. 3. RHABDOMYOLYSIS. The patient's CK is clearing. Will decrease fluids for now to allow the opportunity for more volume. 4. TRANSAMINITIS, MOST LIKELY DUE TO UNDERLYING SHOCK. 5. ACUTE HYPOXEMIC RESPIRATORY FAILURE. The patient currently has high oxygen demand FiO2. Once again, will repeat ABG and follow. DISPOSITION: The patient is a FULL CODE. Pending patient's symptomatology and diagnostic findings, will re-evaluate as needed. The patient has been accepted to the cutter out service at [facility]. Time spent on this critical care visit, including assessment, plan, physical examination, patient education, review of records is 30 minutes. DICTATING PHYSICIAN: MARINA POSADA NP [id number] PHY#: [id number] ID: [id number] JOB#: [id number] ACCT: [id number] cc: >
--- NOTE | 2017-07-22 14:11 | PDOC CONSULTATION ---
Consultation Consult Date: 07/20/17 Attending physician:: NELL ALMEIDA Consult reason:: acute resp failure History of Present Illness Admission Date/PCP: 07/18/17 15:07 DIGNA MADDEN History of Present Illness: EVERTON GUERRIER is a 46 year old male who presented to the emergency room on July 16 with a cough and was diagnosed with left lower lobe pneumonia. He was sent home with a prescription of Levaquin 750 mg p.o. daily and Zofran as needed. He continued to cough and feel short of breath. He also developed watery diarrhea 1-2 episodes a day. Since there were no improvement in his symptoms he presented back to the emergency room. He was found to be satting 85% on 6 L and was upgraded to BiPAP. IV Levaquin was ordered. He was also found to have rhabdomyolysis with elevated creatinine kinase and was started on IV fluids. He was unable to sustain acceptable oxygenation and is currently intubated.He became increasingly more difficult to oxygenate but min acceptable SAO2 were finally stabilized when he display increasing difficulty ventilating with a concomitant decrease in ph agree with pcp best interest of patient to transfer to tertiary care Past Medical History Cardiac Medical History: Reports: Hyperlipidema, Hypertension Pulmonary Medical History: Reports: Pneumonia Neurological Medical History: Reports: Migraine Endocrine Medical History: Reports: Diabetes Mellitus Type 2 - pre diabetes Musculoskeltal Medical History: Reports: Arthritis Past Surgical History Past Surgical History: Reports: Orthopedic Surgery - knee replacement facial reconstruction multiple 21 knee surgeries, Tonsillectomy Social History Information Source: [facility] Records Lives with: Family Smoking Status: Former Smoker Number of Years Smokin Frequency of Alcohol Use: None Hx Recreational Drug Use: No Drugs: None Hx Prescription Drug Abuse: No - Advance Directive Resuscitation Status: Full Code Family History Family History: Arthritis, COPD, DM, Hyperlipidemia, Hypertension, Malignancy, Thyroid Disfunction Parental Family History Reviewed: No Children Family History Reviewed: No Sibling(s) Family History Reviewed.: No Medication/Allergy Home Medications: Hydrocodone Bit/Acetaminophen [Vicodin 5-500 mg Tablet] 1 - 2 tab PO ASDIR PRN 06/10/11 Levofloxacin [Levaquin 750 mg Tablet] 750 mg PO DAILY #5 tablet 07/16/17 Allergies/Adverse Reactions: No Known Allergies Allergy (Verified 07/18/17 11:07) Review of Systems ROS unobtainable: Due to endotracheal tube Physical Exam Vital Signs: Temp Pulse Resp BP Pulse Ox 100.2 F 96 30 H 111/60 90 L 07/20/17 07:44 07/20/17 08:10 07/20/17 08:10 07/20/17 08:09 07/20/17 08:10 Intake & Output 07/21/17 07/22/17 07/23/17 06:59 06:59 06:59 Output Total 245 Balance -245 General appearance: PRESENT: no acute distress, disheveled, morbidly obese, well -developed. ABSENT: cooperative, mild distress, obese, severe distress Head exam: PRESENT: atraumatic, normocephalic Eye exam: PRESENT: conjunctiva pale. ABSENT: conjunctival injection, conjunctiva pink, nystagmus, periorbital swelling, scleral icterus Mouth exam: PRESENT: dry mucosa, neck supple, tongue midline, other - ET tube. ABSENT: laceration, moist Neck exam: ABSENT: carotid bruit, JVD, lymphadenopathy, thyromegaly, tracheal deviation, tracheostomy Respiratory exam: PRESENT: crackles, decreased breath sounds, prolonged expiratory phas, rhonchi, symmetrical, tachypnea, unlabored. ABSENT: accessory muscle use, chest wall tenderness, clear to auscultation suzanne, retraction, stridor, wheezes Cardiovascular exam: PRESENT: RRR, +S1, +S2. ABSENT: rubs Pulses: PRESENT: normal radial pulses GI/Abdominal exam: PRESENT: diminished bowel sounds, soft Gentrourinary exam: PRESENT: indwelling catheter Extremities exam: ABSENT: clubbing, joint swelling Musculoskeletal exam: ABSENT: ambulatory, deformity, dislocation Neurological exam: ABSENT: alert, awake Skin exam: PRESENT: dry, warm Results Laboratory Results: 07/20/17 04:05 07/20/17 04:05 07/19/17 23:08 Tracheal Aspirate Gram Stain - Final 07/19/17 23:08 Tracheal Aspirate Sputum Culture - Final C.albicans/C.dubliniensis Greatly Reduced Normal Shahida 07/19/17 07/20/17 05:03 04:05 Creatine Kinase 41759 H [id number] H Impressions: Chest/Abdomen CTA 07/18/17 12:55 IMPRESSION: 1. NORMAL CTA OF THE CHEST. NO PULMONARY EMBOLI. 2. DIFFUSE PATCHY AIRSPACE DISEASE THROUGHOUT BOTH LUNGS. MOST LIKELY DUE TO MULTIFOCAL PNEUMONIA. Abdomen Ultrasound 07/19/17 00:00 IMPRESSION: Study limited due to acoustical interference from fat or from air in the bowel. Gallbladder not identified. Chest X-Ray 07/20/17 00:00 IMPRESSION: LIFE LINES DESCRIBED APPEAR TO BE IN SATISFACTORY POSITION. OTHERWISE NO CHANGE IN APPEARANCE OF THE CHEST. Assessment & Plan - Diagnosis (1) Morbid obesity with BMI of 45.0-49.9, adult Is this a current diagnosis for this admission?: Yes Plan: no change (2) Obstructive sleep apnea Is this a current diagnosis for this admission?: Yes Plan: schedule NPSG (3) Rhabdomyolysis Qualifiers: Rhabdomyolysis type: non-traumatic Qualified Code(s): M62.82 - Rhabdomyolysis Is this a current diagnosis for this admission?: Yes Plan: no nephrology coverage;no renal failure thus far (4) ARDS (adult respiratory distress syndrome) Is this a current diagnosis for this admission?: Yes Plan: radiographically and POA2/FIO2 = 60 - Time Total Critical Time (Minutes): 75
[2017-07-23 08:39] LABS: CK MACRO TYPE 1 0 % (Not Observed); CK MACRO TYPE 2 0 % (Not Observed); CK-MB 0 % (0-3); CK-MM 100 % (97-100)
[2017-07-24 11:16] LABS: CK-BB 0 % (0); CREATINE KINASE TOTAL 12489 U/L (24-204)
== END 2017-07-20 09:25 | disposition short-term general hospital (02) | DRG 208 ==
LOC: ER 11:05 → EH 15:07 → 3W 16:54 → ICU 07-19 22:06
PROVIDERS: ADMIT Internal Medicine; ATTEND Internal Medicine
PROC: 5A09457 Assistance with Respiratory Ventilation, 24-96 Consecutive Hours, Continuous Positive Airway Pressure (ICD-10-PCS; 2017-07-18)
PROC: 0BH17EZ Insertion of Endotracheal Airway into Trachea, Via Natural or Artificial Opening (ICD-10-PCS; principal; 2017-07-19)
PROC: 5A1935Z Respiratory Ventilation, Less than 24 Consecutive Hours (ICD-10-PCS; 2017-07-19)
PROC: 02HV33Z Insertion of Infusion Device into Superior Vena Cava, Percutaneous Approach (ICD-10-PCS; 2017-07-20)
PROC: B548ZZA Ultrasonography of Superior Vena Cava, Guidance (ICD-10-PCS; 2017-07-20)
DX: J18.9 Pneumonia, unspecified organism (principal); J96.01 Acute respiratory failure with hypoxia; A41.9 Sepsis, unspecified organism; M62.82 Rhabdomyolysis; Z68.42 Body mass index [BMI] 45.0-49.9, adult; E78.5 Hyperlipidemia, unspecified; E11.9 Type 2 diabetes mellitus without complications; E66.9 Obesity, unspecified; I10 Essential (primary) hypertension; M19.90 Unspecified osteoarthritis, unspecified site; Z91.81 History of falling; G43.909 Migraine, unspecified, not intractable, without status migrainosus; G47.33 Obstructive sleep apnea (adult) (pediatric); R19.7 Diarrhea, unspecified; Z87.891 Personal history of nicotine dependence; Z96.659 Presence of unspecified artificial knee joint; Z78.1 Physical restraint status; Z82.61 Family history of arthritis; Z83.3 Family history of diabetes mellitus; Z82.49 Family history of ischemic heart disease and other diseases of the circulatory system
CPT/HCPCS: 36415; 36600; 71010; 71275; 76705; 80048; 80053; 80061; 82550; 82552; 82553; 82803; 82962; 83036; 83605; 83735; 83874; 83880; 84100; 84478; 84484; 85025; 85027; 85362; 85379; 85384; 85610; 85730; 86701; 87040; 87070; 87205; 87493; 87804; 93005; 93010; 94002; 94003; 94640; 94660; 96365; 96375; 99291; J0692; J0696; J1650; J1815; J1956; J2250; J2704; J2920; J2930; J3010; J3370; J3475; J3490; J7030; J7060; J7620; S0164